=== PATIENT | male | born 1945 | race Caucasian/White ===

== ENCOUNTER 2018-07-08 09:18 | Day surgery (SDC) | payer MEDICARE, OTHER ==
[~2018-07-08 09:18] MED LIST: AMLO10 PO; ASPI81CH PO; CEPH500 PO; CLON1 PO; ESCI5 PO; FENT25TP TOP; FURO40 PO; GABA400 PO; HYDACE7.5 PO; HYDRA25 PO; LEVSOD25 PO; LOVA40 PO; METO50 PO; Miralax17 GM PO; NAPR500 PO; NEOBACHC15 TOP; OXYC10TA19 PO; QUET25 PO; SULTRIDS PO; TEMA15 PO; TIZA4 PO; TRAZ100 PO; VENL25 PO; VERA120 PO; ZOLP10 PO
== END 2018-07-08 22:40 | disposition home or self-care (01) ==
LOC: WOUND 09:18
DX: L89.213 Pressure ulcer of right hip, stage 3 (principal); E78.5 Hyperlipidemia, unspecified; I10 Essential (primary) hypertension; G89.4 Chronic pain syndrome; I70.268 Atherosclerosis of native arteries of extremities with gangrene, other extremity
CPT/HCPCS: 87070; 87205; G0463

== ENCOUNTER 2018-07-15 07:41 | Day surgery (SDC) | payer MEDICARE, OTHER | END 2018-07-15 22:43 | disposition home or self-care (01) | LOC: WOUND 07:41 | DX: L02.415 Cutaneous abscess of right lower limb (principal); E78.5 Hyperlipidemia, unspecified; I10 Essential (primary) hypertension; G89.4 Chronic pain syndrome; I70.209 Unspecified atherosclerosis of native arteries of extremities, unspecified extremity ==

== ENCOUNTER 2018-07-17 00:15 | Day surgery (SDC) | payer MEDICARE, OTHER | END 2018-07-17 22:36 | disposition home or self-care (01) | LOC: WOUND 00:15 | DX: L02.415 Cutaneous abscess of right lower limb (principal); I70.209 Unspecified atherosclerosis of native arteries of extremities, unspecified extremity; E78.5 Hyperlipidemia, unspecified; I10 Essential (primary) hypertension; G89.4 Chronic pain syndrome ==

== ENCOUNTER 2018-08-14 00:45 | Day surgery (SDC) | payer MEDICARE, OTHER | END 2018-08-14 22:39 | disposition home or self-care (01) | LOC: WOUND 00:45 | DX: L98.492 Non-pressure chronic ulcer of skin of other sites with fat layer exposed (principal); L02.415 Cutaneous abscess of right lower limb; I10 Essential (primary) hypertension; G89.4 Chronic pain syndrome; E78.5 Hyperlipidemia, unspecified | CPT/HCPCS: 87070; 87075; 87205 ==

== ENCOUNTER 2018-08-17 07:40 | Day surgery (SDC) | payer MEDICARE, OTHER | END 2018-08-17 22:59 | disposition home or self-care (01) | LOC: WOUND 07:40 | DX: L98.492 Non-pressure chronic ulcer of skin of other sites with fat layer exposed (principal); L02.415 Cutaneous abscess of right lower limb; I10 Essential (primary) hypertension; G89.4 Chronic pain syndrome ==

== ENCOUNTER 2018-08-19 00:06 | Day surgery (SDC) | payer MEDICARE, OTHER | END 2018-08-19 22:48 | disposition home or self-care (01) | LOC: WOUND 00:06 | DX: L98.492 Non-pressure chronic ulcer of skin of other sites with fat layer exposed (principal); L02.415 Cutaneous abscess of right lower limb; I10 Essential (primary) hypertension; G89.4 Chronic pain syndrome ==

== ENCOUNTER 2018-10-07 00:20 | Day surgery (SDC) | payer MEDICARE, OTHER ==
[~2018-10-07 00:20] MED LIST changes: -LEVSOD25 PO; +LEVSOD50 PO
[2018-11-24] MEDS ORDERED: FENTANYL1 EAC1 TD (10:46)
[2018-11-24] MEDS ORDERED: GABA600 PO (10:47)
[2018-11-24] MEDS ORDERED: PRAV20 PO (10:50)
[2018-11-24] MEDS ORDERED: SERT100 PO (10:50)
[2018-11-24] MEDS ORDERED: MONT10T PO (11:21)
[2018-11-24] MEDS ORDERED: Hair, Skin & N1 EACH PO (11:22)
[2018-11-24] MEDS ORDERED: Advair Hfa 230-12 GM (11:23)
== END 2018-10-07 22:38 | disposition home or self-care (01) ==
LOC: WOUND 00:20
DX: L98.492 Non-pressure chronic ulcer of skin of other sites with fat layer exposed (principal); L02.415 Cutaneous abscess of right lower limb; I10 Essential (primary) hypertension; G89.4 Chronic pain syndrome; E11.9 Type 2 diabetes mellitus without complications
CPT/HCPCS: 87070; G0463

== ENCOUNTER 2018-10-21 10:00 | Day surgery (SDC) | payer MEDICARE, OTHER ==
[2018-11-24] MEDS ORDERED: FENTANYL1 EAC1 TD (10:46)
[2018-11-24] MEDS ORDERED: GABA600 PO (10:47)
[2018-11-24] MEDS ORDERED: SERT100 PO (10:50)
[2018-11-24] MEDS ORDERED: PRAV20 PO (10:50)
[2018-11-24] MEDS ORDERED: MONT10T PO (11:21)
[2018-11-24] MEDS ORDERED: Hair, Skin & N1 EACH PO (11:22)
[2018-11-24] MEDS ORDERED: Advair Hfa 230-12 GM (11:23)
== END 2018-10-21 22:39 | disposition home or self-care (01) ==
LOC: WOUND 10:00
DX: L98.492 Non-pressure chronic ulcer of skin of other sites with fat layer exposed (principal); L02.415 Cutaneous abscess of right lower limb; I10 Essential (primary) hypertension; G89.4 Chronic pain syndrome
CPT/HCPCS: G0463

== ENCOUNTER 2018-10-28 09:55 | Day surgery (SDC) | payer MEDICARE, OTHER ==
[2018-11-24] MEDS ORDERED: FENTANYL1 EAC1 TD (10:46)
[2018-11-24] MEDS ORDERED: GABA600 PO (10:47)
[2018-11-24] MEDS ORDERED: PRAV20 PO (10:50)
[2018-11-24] MEDS ORDERED: SERT100 PO (10:50)
[2018-11-24] MEDS ORDERED: MONT10T PO (11:21)
[2018-11-24] MEDS ORDERED: Hair, Skin & N1 EACH PO (11:22)
[2018-11-24] MEDS ORDERED: Advair Hfa 230-12 GM (11:23)
== END 2018-10-28 22:37 | disposition home or self-care (01) ==
LOC: WOUND 09:55
DX: L89.219 Pressure ulcer of right hip, unspecified stage (principal); L02.415 Cutaneous abscess of right lower limb; I10 Essential (primary) hypertension; G89.4 Chronic pain syndrome; E11.9 Type 2 diabetes mellitus without complications
CPT/HCPCS: G0463

== ENCOUNTER 2018-11-18 09:54 | Day surgery (SDC) | payer MEDICARE, OTHER ==
[2018-11-24] MEDS ORDERED: FENTANYL1 EAC1 TD (10:46)
[2018-11-24] MEDS ORDERED: GABA600 PO (10:47)
[2018-11-24] MEDS ORDERED: PRAV20 PO (10:50)
[2018-11-24] MEDS ORDERED: SERT100 PO (10:50)
[2018-11-24] MEDS ORDERED: MONT10T PO (11:21)
[2018-11-24] MEDS ORDERED: Hair, Skin & N1 EACH PO (11:22)
[2018-11-24] MEDS ORDERED: Advair Hfa 230-12 GM (11:23)
== END 2018-11-18 22:44 | disposition home or self-care (01) ==
LOC: WOUND 09:54
DX: L98.492 Non-pressure chronic ulcer of skin of other sites with fat layer exposed (principal); L02.415 Cutaneous abscess of right lower limb; G89.4 Chronic pain syndrome; E11.9 Type 2 diabetes mellitus without complications; N18.3 Chronic kidney disease, stage 3 (moderate)

== ENCOUNTER 2018-12-02 06:53 | Observation (INO) | payer MEDICARE, OTHER ==
[~2018-12-02] VITALS: Ht 167.6 cm; Wt 87.1 kg
[~2018-12-02 06:53] MED LIST changes: +Advair Hfa 230-12 GM; +FENTANYL1 EAC1 TD; +GABA600 PO; +Hair, Skin & N1 EACH PO; +MONT10T PO; +PRAV20 PO; +SERT100 PO
--- NOTE | 2018-12-02 07:53 | NUR ---
History, Chart, Medications and Allergies reviewed before start of procedure. Lungs clear T/O to Auscultation. Patient confirms NPO status and agrees with scheduled surgery. Pre-Op teaching done. Pt verbalizes understanding. Patient reports completing Chlorhexadine shower X2 prior to admission to hospital.
--- NOTE | 2018-12-02 08:03 | NUR ---
PT HAS A DRESSING TO R HIP WHICH HE PLACES THIS MORNING AFTER HIS SHOWER. BRUISINGN NOTED TO BACK AND HIP.
--- NOTE | 2018-12-02 08:18 | NUR ---
MINAL STARTED PER DR. MORILLO REQUEST.
--- NOTE | 2018-12-02 15:46 | NUR ---
Patient gave permission for Tri Issa to provide care on 12/03/18.
--- NOTE | 2018-12-02 18:01 | NUR ---
SHIFT SUMMARY SINCE ARRIVAL TO UNIT, PT HAS BEEN QUEIT, SOFT SPOKEN. SEEMS TO HAVE SOME DIFFICULTY FINDING WORDS AT TIMES. PAIN APPEARS TO BE WELL MANAGED. TOLERATING DIET.
--- NOTE | 2018-12-03 07:04 | NUR ---
SUMMARY PT OOB FOR BRP THIS AM REQUIRES 2 ASSIST WITH WALKER ENCOURAGED. PT VERB NORCO EFFECTIVE FOR PAIN CONTROL. PT WITH OCC INCONTINENCE WHILE SLEEPING. ATTENDS CHANGED.
--- NOTE | 2018-12-03 07:10 | NUR ---
pt oob to bathroom with assist with fww to void pt denies bm req pain meds sn administered
--- NOTE | 2018-12-03 13:55 | NUR ---
dr messer by to see pt ok to go later today with his home wound vac needs to charge battery was
--- NOTE | 2018-12-03 17:24 | NUR ---
ASSISTED PT TO BATHROOM TO VOID AWAITING DISCHARE ORDERS FROM DR WOLFE CALLED [facility] TALKED WITH DR KAYLIE LOTT TO TRY AND REACH DR WOLFE
--- NOTE | 2018-12-03 18:30 | NUR ---
DISCHARGE INSTRUCTIONS REVIEWED WITH PT VERBALIZED NO RX PT PUT ON HIS OWN WOUND VAC ASSISTED TO GET DRESSED NO ACUTE CHANGES ALSO WENT OVER INSTRUCTIONS WITH PTS SON ADDITIONAL SUPPLIES GIVEN
== END 2018-12-03 18:44 | disposition home or self-care (01) ==
LOC: SURS 06:53 → PRE IP 06:53 → SURS 06:54 → PRE IP 08:30 → SURS 11:38
PROVIDERS: ADMIT Surgery
PROC: 0JBL0ZZ Excision of Right Upper Leg Subcutaneous Tissue and Fascia, Open Approach (ICD-10-PCS; principal; 2018-12-02 08:30)
DX: L89.219 Pressure ulcer of right hip, unspecified stage (principal); I12.9 Hypertensive chronic kidney disease with stage 1 through stage 4 chronic kidney disease, or unspecified chronic kidney disease; E11.22 Type 2 diabetes mellitus with diabetic chronic kidney disease; N18.9 Chronic kidney disease, unspecified; E78.5 Hyperlipidemia, unspecified; G47.33 Obstructive sleep apnea (adult) (pediatric); E03.9 Hypothyroidism, unspecified; K21.9 Gastro-esophageal reflux disease without esophagitis; F31.9 Bipolar disorder, unspecified; Z79.899 Other long term (current) drug therapy
CPT/HCPCS: 82947; 87071; 87075; 87205; 88305; G0378; J1100; J2250; J2405; J3010; J7120; Q9968

== ENCOUNTER 2019-10-19 16:26 | Emergency (ER) | payer MEDICARE, OTHER ==
[~2019-10-19] VITALS: Ht 167.6 cm; Wt 77.1 kg
[~2019-10-19 16:26] MED LIST changes: -FENTANYL1 EAC1 TD; +Fentanyl1 EAC4 TOP; +LEVSOD125 PO; -LEVSOD50 PO; -TRAZ100 PO; +TRAZ150T57 PO
[2019-10-19] MEDS ORDERED: TAMSULOSIN HCL0.4 M1 PO (16:42)
[2019-10-19] MEDS ORDERED: ARIP10 PO (16:43)
[2019-10-19] MEDS ORDERED: SINEMET 25-1001 EACH PO (16:43)
[2019-10-19] MEDS ORDERED: PRINIVIL10 MG PO (16:44)
[2019-10-19 16:48] LABS: BASOPHILS ABSOLUTE AUTO 0.09 K/mm3 (0.00-0.23); BASOPHILS PERCENT AUTO 1 % (0-2); EOSINOPHILS ABSOLUTE AUTO 0.21 K/mm3 (0.00-0.68); EOSINOPHILS PERCENT AUTO 3 % (0-6); Hemoglobin 16.4 g/dL (13.5-17.5); IMMATURE GRAN ABSOLUTE AUTO 0.04 K/mm3 (0.00-0.10); IMMATURE GRAN PERCENT AUTO 1 % (0-1); LYMPHOCYTES ABSOLUTE AUTO 2.17 K/mm3 (0.84-5.20); LYMPHOCYTES PERCENT AUTO 26 % (21-46); MONOCYTES ABSOLUTE AUTO 0.34 K/mm3 (0.16-1.47); MONOCYTES PERCENT AUTO 4 % (4-13); Mean Corpuscular HGB 29.1 pg (26.0-34.0); Mean Corpuscular HGB Conc 32.2 g/dL (31.5-36.5); Mean Corpuscular Volume 90 fL (80-100); Mean Platelet Volume 11.3 fL (9.1-12.4); NEUTROPHILS ABSOLUTE AUTO 5.55 K/mm3 (1.96-9.15); NEUTROPHILS PERCENT AUTO 66 % (41-73); Platelet Count 275 K/mm3 (150-400); RDW Coefficient Variation 16.5 % (11.7-14.2); Red Blood Cell Count 5.64 M/mm3 (4.30-5.90)
[2019-10-19 17:09] LABS: Albumin, Blood 4.2 g/dL (3.4-5.0); Albumin/Globulin Ratio 0.8 (0.8-1.8); Bilirubin, Total 0.6 mg/dL (0.1-1.0); Calcium, Blood 9.8 mg/dL (8.5-10.1); Creatinine, Blood 1.79 mg/dL (0.60-1.20); Globulin, Blood 5.1 g/dL (2.2-4.0); Potassium, Blood 4.5 mmol/L (3.5-5.5); Total Protein, Blood 9.3 g/dL (6.4-8.2)
[2019-10-19 17:50] LABS: Source, Urine Clean Catch
[2019-10-19 17:53] LABS: Bilirubin, Urine Neg (Neg); Blood, Urine 3+ (Neg); Glucose Qualitative, Urine Neg (Neg); Ketones, Urine 3+ (Neg); Leukocyte Esterase, Urine Neg (Neg); Nitrite, Urine Neg (Neg); Protein, Urine 2+ (Neg); Specific Gravity, Urine 1.025 (1.003-1.022); Urobilinogen, Urine NORM (Normal)
[2019-10-19 18:02] LABS: Appearance, Urine Clear (Clear); Color, Urine Yellow (P-Yellow)
[2019-10-19 18:05] LABS: White Blood Cells, Urine Not Seen /hpf (0-5)
[2019-10-19 18:06] LABS: Squamous Epithelial Cells Rare /hpf (Few)
[2019-10-19 18:07] LABS: Bacteria Few /hpf
[2019-10-19 18:08] LABS: Amorphous Light (0-Heavy); Hyaline Casts 0-2 /lpf (0-2); Mucus Light (0-Heavy)
== END 2019-10-19 19:18 | disposition home or self-care (01) ==
LOC: ER 16:26
PROVIDERS: Emergency Medicine
DX: R44.3 Hallucinations, unspecified (principal); R74.0 Nonspecific elevation of levels of transaminase and lactic acid dehydrogenase [LDH]; G20 Parkinson's disease; I12.9 Hypertensive chronic kidney disease with stage 1 through stage 4 chronic kidney disease, or unspecified chronic kidney disease; N18.9 Chronic kidney disease, unspecified; E78.5 Hyperlipidemia, unspecified; E03.9 Hypothyroidism, unspecified; Z79.899 Other long term (current) drug therapy
CPT/HCPCS: 36415; 51701; 80053; 81001; 85025; 93005; 93010; 96360-59; 96361-59; 99284-25; J7030

== ENCOUNTER 2019-10-21 15:57 | Inpatient (IN) | payer MEDICARE, OTHER ==
[~2019-10-21] VITALS: Ht 175.3 cm; Wt 72.5 kg
[~2019-10-21 15:57] MED LIST changes: +ARIP10 PO; +PRINIVIL10 MG PO; +SINEMET 25-1001 EACH PO; +TAMSULOSIN HCL0.4 M1 PO
[2019-10-21] MEDS ORDERED: SERT100 PO (18:23)
[2019-10-21 18:46] LABS: Alanine Aminotransfer (ALT/SGP 219 U/L (12-78); Albumin, Blood 3.9 g/dL (3.4-5.0); Albumin/Globulin Ratio 0.8 (0.8-1.8); Alk Phos 108 U/L (50-136); Anion Gap 10 mmol/L (6-16); Aspartate Aminotrans (AST/SGOT 452 U/L (12-37); Bilirubin, Direct 0.2 mg/dL (0.0-0.3); Bilirubin, Indirect 0.4 mg/dL (0.1-0.7); Bilirubin, Total 0.6 mg/dL (0.1-1.0); Blood Urea Nitrogen 34 mg/dL (8-24); CO2, Blood 25 mmol/L (21-32); Calcium, Blood 9.3 mg/dL (8.5-10.1); Chloride, Blood 99 mmol/L (98-108); Creatinine, Blood 1.62 mg/dL (0.60-1.20); Globulin, Blood 4.6 g/dL (2.2-4.0); Glomerular Filtration Rate 44 (60-); Glucose, Blood 88 mg/dL (70-99); Magnesium, Blood 2.2 mg/dL (1.6-2.4); Phosphorus, Blood 2.8 mg/dL (2.5-4.9); Potassium, Blood 3.8 mmol/L (3.5-5.5); Sodium, Blood 134 mmol/L (136-145); Total Protein, Blood 8.5 g/dL (6.4-8.2)
--- NOTE | 2019-10-21 19:20 | NUR ---
PT AO AND SETTLED INTO ROOM. PT WAS A ONE PERSON ASSIST TO BED. BED ALARM IN PLACE AT THIS THIS TIME. PT HAS CALL ALARM WITHIN REACH NO DISTRESS NOTED. TREATED FOR BACK PAIN PER EMAR.
[2019-10-22 04:44] LABS: BASOPHILS ABSOLUTE AUTO 0.08 K/mm3 (0.00-0.23); BASOPHILS PERCENT AUTO 1 % (0-2); EOSINOPHILS ABSOLUTE AUTO 0.28 K/mm3 (0.00-0.68); EOSINOPHILS PERCENT AUTO 5 % (0-6); Hematocrit 44.7 % (37.0-53.0); Hemoglobin 14.3 g/dL (13.5-17.5); IMMATURE GRAN ABSOLUTE AUTO 0.03 K/mm3 (0.00-0.10); IMMATURE GRAN PERCENT AUTO 1 % (0-1); LYMPHOCYTES ABSOLUTE AUTO 2.05 K/mm3 (0.84-5.20); LYMPHOCYTES PERCENT AUTO 35 % (21-46); MONOCYTES PERCENT AUTO 7 % (4-13); Mean Corpuscular Volume 91 fL (80-100); Mean Platelet Volume 11.7 fL (9.1-12.4); NEUTROPHILS ABSOLUTE AUTO 3.11 K/mm3 (1.96-9.15); NEUTROPHILS PERCENT AUTO 52 % (41-73); Platelet Count 165 K/mm3 (150-400); RDW Coefficient Variation 16.3 % (11.7-14.2); Red Blood Cell Count 4.93 M/mm3 (4.30-5.90); White Blood Cell Count 5.95 K/mm3 (4.00-11.30)
--- NOTE | 2019-10-22 04:53 | NUR ---
SHIFT SUMMARY PATIENT PLEASANT TO WORK WITH OVERNIGHT. HE FEELS LESS SCARED ABOUT THE CARE HE IS RECEIVING IF THINGS ARE EXPLAINED TO HIM BEFOREHAND AND HE RESPONDS VERY WELL. HE WAS ABLE TO SLEEP MOST OF THE NIGHT. IV IN RIGHT WRIST IS PATENT AND INFUSING WITH NORMAL SALINE AT 125 ML/HR. MRSA CLEARANCE SWABS FROM THROAT AND NARES OBTAINED AND SENT TO LAB. UNABLE TO OBTAIN STOOL SPECIMIN PATIENT HAS NOT YET HAS A BOWEL MOVEMENT. BED IN LOWEST POSITION WITH WHEELS LOCKED AND ALARM ON. CALL LIGHT WITHIN REACH. REPORT GIVEN TO ONCOMING RN.
[2019-10-22 05:00] LABS: Albumin, Blood 3.3 g/dL (3.4-5.0); Albumin/Globulin Ratio 0.8 (0.8-1.8); Bilirubin, Total 0.5 mg/dL (0.1-1.0); Bun/Creatinine Ratio 20.4 (12.0-20.0); Calcium, Blood 8.6 mg/dL (8.5-10.1); Creatinine, Blood 1.52 mg/dL (0.60-1.20); Globulin, Blood 4.1 g/dL (2.2-4.0); Potassium, Blood 3.7 mmol/L (3.5-5.5); Total Protein, Blood 7.4 g/dL (6.4-8.2)
--- NOTE | 2019-10-22 17:29 | NUR ---
SHIFT SUMMARY PT 1 PERSON ASSIST USING FWW. AMBULATED IN TO BATHROOM 2-3 TIMES TODAY AND VOIDED. REPORTED BACK PAIN THIS AFTERNOON THAT WAS TREATED WITH OXYCODONE. APS IN TO SEE PT AND SPOKE WITH HIM ABOUT LIVING SITUATION. SHE DISCUSSED GETTING MEDICAID IN PLACE FOR OPENING PLACEMENT OPPORTUNITIES. RADIO SPORTSCASTER IN TO VISIT WELL AND NOTIFIED HER OF UPDATE.
[2019-10-23 05:24] LABS: Alanine Aminotransfer (ALT/SGP 99 U/L (12-78); Albumin, Blood 3.1 g/dL (3.4-5.0); Albumin/Globulin Ratio 0.9 (0.8-1.8); Alk Phos 84 U/L (50-136); Anion Gap 8 mmol/L (6-16); Aspartate Aminotrans (AST/SGOT 251 U/L (12-37); Bilirubin, Total 0.4 mg/dL (0.1-1.0); Blood Urea Nitrogen 25 mg/dL (8-24); Bun/Creatinine Ratio 20.8 (12.0-20.0); CO2, Blood 24 mmol/L (21-32); Calcium, Blood 8.5 mg/dL (8.5-10.1); Chloride, Blood 104 mmol/L (98-108); Globulin, Blood 3.6 g/dL (2.2-4.0); Glomerular Filtration Rate >60 (60-); Glucose, Blood 108 mg/dL (70-99); Potassium, Blood 3.4 mmol/L (3.5-5.5); Sodium, Blood 136 mmol/L (136-145); Total Protein, Blood 6.7 g/dL (6.4-8.2)
--- NOTE | 2019-10-23 18:34 | NUR ---
SHIFT SUMMARY NO ACUTE CHANGES. PATIENT MEDICATED X1 FOR PAIN. DENIES NAUSEA AND SHORTNESS OF BREATH. UP ONE ASSIST WITH FWW TO CHAIR AN BATHROOM. UP IN CHAIR FOR MEALS. PATIENT AWAITING PLACEMENT. CALL LIGHT IN REACH.
--- NOTE | 2019-10-24 04:59 | NUR ---
SHIFT SUMMARY: VSS. AFEB. MAINTAINING 02 SATS WNL ON RA. SLEPT WELL AFTER ADMINISTRATION OF PRN ANALGESIC. REACHED ABOUT 12 HRS WITH NO VOID DOCUMENTED, HE THEN VOIDED WITH ENCOURAGEMENT FROM STAFF, PVR WAS CHECKED- 125MLS. BED LOW, CALL BUTTON WITHIN REACH. BED ALARM ON. NO ATTEMPTS TO SELF T/F TONIGHT.
[2019-10-24 05:01] LABS: Albumin/Globulin Ratio 0.8 (0.8-1.8); Bilirubin, Total 0.4 mg/dL (0.1-1.0); Bun/Creatinine Ratio 18.8 (12.0-20.0); Calcium, Blood 8.5 mg/dL (8.5-10.1); Creatinine, Blood 1.28 mg/dL (0.60-1.20); Free Thyroxine 0.35 ng/dL (0.70-1.60); Globulin, Blood 3.7 g/dL (2.2-4.0); Potassium, Blood 3.4 mmol/L (3.5-5.5); Total Protein, Blood 6.7 g/dL (6.4-8.2)
[2019-10-24 08:07] LABS: HBSAG SCREEN Negative (Negative); HCV ANTIBODY <0.1 (0.0-0.9); HEP B CORE AB, IGM Negative (Negative)
--- NOTE | 2019-10-24 16:46 | NUR ---
SHIFT SUMMARY PATIENT IS PLEASANT. NO ACUTE CONCERNS AT THIS TIME. HE IS AWAITING PLACEMENT. HE IS ALERT AND ORIENTED X3. HE DENIES ANY EXCESS PAIN AT THIS TIME. DOES NOTE TO HAVE TROUBLE SWALLOWING. HE DOES NOT NOTE TO HAVE ANY OTHER ISSUES.
--- NOTE | 2019-10-25 04:54 | NUR ---
PT HAS BEEN RESTING QUIETLY WITH FEW INTERRUPTIONS. CALL LIGHT IN REACH.
[2019-10-25 05:53] LABS: Alanine Aminotransfer (ALT/SGP 75 U/L (12-78); Albumin/Globulin Ratio 0.8 (0.8-1.8); Alk Phos 74 U/L (50-136); Anion Gap 8 mmol/L (6-16); Aspartate Aminotrans (AST/SGOT 184 U/L (12-37); Bilirubin, Total 0.4 mg/dL (0.1-1.0); Blood Urea Nitrogen 24 mg/dL (8-24); Bun/Creatinine Ratio 20.2 (12.0-20.0); CO2, Blood 22 mmol/L (21-32); Calcium, Blood 8.6 mg/dL (8.5-10.1); Chloride, Blood 107 mmol/L (98-108); Creatinine, Blood 1.19 mg/dL (0.60-1.20); Globulin, Blood 3.6 g/dL (2.2-4.0); Glomerular Filtration Rate >60 (60-); Glucose, Blood 106 mg/dL (70-99); Potassium, Blood 3.6 mmol/L (3.5-5.5); Sodium, Blood 137 mmol/L (136-145); Total Protein, Blood 6.6 g/dL (6.4-8.2)
--- NOTE | 2019-10-25 17:43 | NUR ---
SHIFT SUMMARY RAMA HAS BEEN MOSTLY ORIENTED THIS SHIFT. ANSWERS ORIENTATION QUESTIONS APPROPRIATELY, BUT NOT ABLE TO FULLY TRACK CONVERSATIONS ON MEDS, FORGETFUL ALSO. UP OUT OF BED TO WALK WITH PT AND AGAIN WITH OT, UP TO CHAIR FOR BREAKFAST AND LUNCH WITH A01 AND WALKER. BLADDER SCAN AFTER VOIDING SHOWED 119ML REMAINING. PAIN WELL CONTROLLED WITH FENTANYL PATCH. NEEDS ASSISTANCE WITH URINAL. L SCRATCH ON FLANK DRESSED WITH ABX OINTMENT. TOOK PILLS PRESCRIBED. CALL LIGHT IN REACH, [facility]
--- NOTE | 2019-10-26 04:50 | NUR ---
SHIFT SUMMARY PATIENT ABLE TO SLEEP WELL MOST OF THE NIGHT. IV IN RIGHT WRIST PATENT AND FLUSHED, ALTHOUGH SEEMS TO FLUSH DIFFERENTLY DEPENDING ON THE POSITION OF HIS HAND. PATIENT RECEIVED ONE DOSE OF PRN OXYCODONE FOR BACK PAIN. BED IN LOWEST POSITION WITH WHEELS LOCKED AND ALARM ON. CALL LIGHT WITHIN REACH. REPORT GIVEN TO ONCOMING RN.
[2019-10-26 04:52] LABS: Bun/Creatinine Ratio 22.3 (12.0-20.0); Calcium, Blood 8.4 mg/dL (8.5-10.1); Creatinine, Blood 1.3 mg/dL (0.60-1.20); Potassium, Blood 3.9 mmol/L (3.5-5.5)
--- NOTE | 2019-10-26 18:10 | NUR ---
SHIFT SUMMARY PATIENT A/O. MAKES NEEDS KNOWN. PAIN MANAGED THROUGH PRN MEDICATIONS. CALLS APPROPRIATELY. VSS. PATIENT ABLE TO STAND/PIVOT AND TRANSFER FROM CHAIR TO BED AND BACK.
--- NOTE | 2019-10-27 05:47 | NUR ---
HAS BEEN RESTING QUIETLY WITH FEW INTERRUPTIONS THIS SHIFT. RECEIVED PAIN MED FOR DISCOMFORT OF LEFT HIP AREA - NOTED ABRASION OF AREA, STATED IT HAPPENED WHEN HE FELL BEFORE HE CAME INTO THE HOSPITAL. WAS STATED ABOVE, HAS BEEN RESTING QUIETLY SINCE. CALL LIGHT IN REACH.
--- NOTE | 2019-10-27 18:35 | NUR ---
SHIFT SUMMARY PATIENT A/O. PAIN MANAGED THROUGH PRN/SCHEDULED MEDICATIONS. USES CALL LIGHT APPROPRIATELY. HAS BEEN CALLING FOR ASSISTANCE TO RESTROOM AND USES FWW WITH STBY ASSIST. PATIENT TO D/C TO [facility], AWAITING FURNISHINGS TO BE PLACED. D/C ORDER IN FOR THE PATIENT AND NOW AWAITING PLACEMENT.
--- NOTE | 2019-10-28 04:09 | NUR ---
SHIFT SUMMARY NO ISSUES NOTED. PT HAS BEEN SLEEPING T/O SHIFT. PT HAS BEEN GETTING UP TO USE RESTROOM WITH ASSISTANCE. PT CURRENTLY SLEEPING IN NO DISTRESS. CALL LIGHT IN REACH.
[2019-10-28] MEDS ORDERED: CLOT10 MT (11:20)
[2019-10-28] MEDS ORDERED: Flonase 0.05% N16 GM (11:21)
--- NOTE | 2019-10-28 15:02 | NUR ---
PER BRANDON WITH [facility] THE FAMILY IS NOT READY FOR PT TO DISCHARGE TODAY THEY ARE STILL MOVING IN TO [facility] AND SETTING UP CAREGIVERS. RX FAXED TO [facility] AND W/C SCRIPT FAXED TO [facility] BY BRANDON. PLAN FOR DISCHARGE TOMORROW AM.
--- NOTE | 2019-10-28 17:35 | NUR ---
SHIFT SUMMARY PATIENT A/O. AMBULATING WELL WITH FWW. PAIN MANAGED SCHEDULED AND PRN MEDICATIONS. VSS. PATIENT REQUIRES SETUP ASSISTANCE FOR FEEDING, GROOMING AND TOILETING. DISCHARGE ORDER IN PLACE FOR PATIENT AND AWAITING FURNISHING OF HOME AND 4WW ORDER TO BE FULFILLED. LN TO CONTINUE TO MONITOR.
--- NOTE | 2019-10-29 04:35 | NUR ---
SHIFT SUMMARY PT HAD VISITORS AT BEGINNING OF SHIFT AND WAS IN GOOD SPIRITS. PT REPORTED BEING TIRED AFTER HIS FAMILY LEFT. PT SLEPT WELL FOR MOST OF SHIFT. PT DID HAVE SOME INCREASED BACK PAIN AND WAS MEDICATED PER EMAR. PT CURRENTLY SLEEPING AND BREATHING EASY. CALL LIGHT IN REACH.
== END 2019-10-29 10:48 | disposition home or self-care (01) | DRG 682 ==
LOC: MEDS 15:57
PROVIDERS: Family Medicine; Internal Medicine Endocrinology, Diabetes & Metabolism; Student in an Organized Health Care Education/Training Program; ADMIT Family Medicine
DX: N17.9 Acute kidney failure, unspecified (principal); G92 Toxic encephalopathy; E87.1 Hypo-osmolality and hyponatremia; E44.0 Moderate protein-calorie malnutrition; E86.9 Volume depletion, unspecified; E03.9 Hypothyroidism, unspecified; R41.0 Disorientation, unspecified; G20 Parkinson's disease; F32.9 Major depressive disorder, single episode, unspecified; K75.9 Inflammatory liver disease, unspecified; N18.3 Chronic kidney disease, stage 3 (moderate); G89.29 Other chronic pain; E86.0 Dehydration; F51.04 Psychophysiologic insomnia; R31.9 Hematuria, unspecified; R33.9 Retention of urine, unspecified; E87.6 Hypokalemia; E11.22 Type 2 diabetes mellitus with diabetic chronic kidney disease; E11.51 Type 2 diabetes mellitus with diabetic peripheral angiopathy without gangrene; Z87.891 Personal history of nicotine dependence; Z79.899 Other long term (current) drug therapy
CPT/HCPCS: 36415; 76705; 76770; 80048; 80053; 80069; 82248; 83735; 84439; 84443; 85025; 86705; 86803; 87015; 87045; 87046; 87081; 87205; 87340; 87899; 96372; 97110; 97116; 97162; 97166; 97530; 97535; G0378; J1650; J7030

== ENCOUNTER 2019-11-16 11:17 | Inpatient (IN) | payer MEDICARE, OTHER ==
[~2019-11-16] VITALS: Ht 172.7 cm; Wt 79.1 kg
[~2019-11-16 11:17] MED LIST changes: +CLOT10 MT; +Flonase 0.05% N16 GM
[2019-11-16 12:35] LABS: BASOPHILS ABSOLUTE AUTO 0.06 K/mm3 (0.00-0.23); BASOPHILS PERCENT AUTO 1 % (0-2); EOSINOPHILS ABSOLUTE AUTO 0.24 K/mm3 (0.00-0.68); EOSINOPHILS PERCENT AUTO 3 % (0-6); Hematocrit 32.7 % (37.0-53.0); Hemoglobin 10.1 g/dL (13.5-17.5); IMMATURE GRAN ABSOLUTE AUTO 0.06 K/mm3 (0.00-0.10); IMMATURE GRAN PERCENT AUTO 1 % (0-1); LYMPHOCYTES ABSOLUTE AUTO 1.11 K/mm3 (0.84-5.20); LYMPHOCYTES PERCENT AUTO 12 % (21-46); MONOCYTES ABSOLUTE AUTO 0.64 K/mm3 (0.16-1.47); MONOCYTES PERCENT AUTO 7 % (4-13); Mean Corpuscular HGB 28.2 pg (26.0-34.0); Mean Corpuscular HGB Conc 30.9 g/dL (31.5-36.5); Mean Corpuscular Volume 91 fL (80-100); Mean Platelet Volume 10.7 fL (9.1-12.4); NEUTROPHILS ABSOLUTE AUTO 6.82 K/mm3 (1.96-9.15); NEUTROPHILS PERCENT AUTO 76 % (41-73); Platelet Count 374 K/mm3 (150-400); RDW Coefficient Variation 17.8 % (11.7-14.2); RDW Standard Deviation 59.8 fL (35.1-46.3); Red Blood Cell Count 3.58 M/mm3 (4.30-5.90); White Blood Cell Count 8.93 K/mm3 (4.00-11.30)
[2019-11-16 12:44] LABS: Base Excess Venous 2.5 mmol/L; Bicarbonate Venous 26.5 mmol/L (24.0-30.0); PCO2 Venous 39.1 mmHg (38-42); pH Blood Venous 7.44 (7.34-7.37)
[2019-11-16 13:10] LABS: Alanine Aminotransfer (ALT/SGP 13 U/L (12-78); Albumin, Blood 2.4 g/dL (3.4-5.0); Albumin/Globulin Ratio 0.5 (0.8-1.8); Anion Gap 6 mmol/L (6-16); Aspartate Aminotrans (AST/SGOT 50 U/L (12-37); Blood Urea Nitrogen 16 mg/dL (8-24); Bun/Creatinine Ratio 14.4 (12.0-20.0); CO2, Blood 26 mmol/L (21-32); Calcium, Blood 8.4 mg/dL (8.5-10.1); Chloride, Blood 105 mmol/L (98-108); Creatinine, Blood 1.11 mg/dL (0.60-1.20); Globulin, Blood 4.8 g/dL (2.2-4.0); Glomerular Filtration Rate >60 (60-); Glucose, Blood 106 mg/dL (70-99); Potassium, Blood 4.5 mmol/L (3.5-5.5); Sodium, Blood 137 mmol/L (136-145); Total Protein, Blood 7.2 g/dL (6.4-8.2)
[2019-11-16 13:17] LABS: Alk Phos 103 U/L (50-136); Bilirubin, Total 0.5 mg/dL (0.1-1.0); Troponin I <0.015 ng/mL (0.000-0.040)
[2019-11-16] MEDS ORDERED: GABAPENTIN600 MG PO (15:44)
[2019-11-16 16:59] LABS: Bilirubin, Urine Neg (Neg); Blood, Urine Neg (Neg); Glucose Qualitative, Urine Neg (Neg); Ketones, Urine Neg (Neg); Leukocyte Esterase, Urine 1+ (Neg); Nitrite, Urine Neg (Neg); Protein, Urine Neg (Neg); Source, Urine Voided; Specific Gravity, Urine 1.005 (1.003-1.022); Urobilinogen, Urine NORM (Normal)
[2019-11-16 17:18] LABS: Appearance, Urine Clear (Clear); Color, Urine Yellow (P-Yellow)
[2019-11-16 17:20] LABS: Red Blood Cells, Urine 0-2 /hpf (0-2); Squamous Epithelial Cells Not Seen /hpf (Few)
[2019-11-16 17:21] LABS: Bacteria Rare /hpf
--- NOTE | 2019-11-16 18:35 | NUR ---
On Saturday, November 16, 2019, at 1830, patient gave verbal consent for me to assist his RN tommorrow evening in his care. He was alert and oriented X4.
--- NOTE | 2019-11-16 19:46 | NUR ---
HE ARRIVED AFTER 5PM. HE AND HIS SON GAVE ME HIS HEALTH HISTORY. HE THEN LEFT FOR CT SCAN. HE RESTED ON RETURN THEN I STARTED HIS IVF'S AND A FEW OTHER MEDICATIONS ORDERED. O2 IS ON 2L PER NC. HE DOES NOT APPEAR SOB. REPORT SAID WITHOUT O2 HIS SATS RANGE FROM 82% TO 89%. HE HAS NO APPETITE. HE DOES HAVE BACK PAIN AND ASKED AND RECEIVED OXYCODONE. HE CAN BE CONTINENT AND INCONTINENT. HE SAYS HE WILL NEED HELP WITH THE URINAL. BED ALARM ON. HE HAS BEEN INSTRUCTED ON THE USE OF THE CALL LIGHT.
[2019-11-16 22:22] LABS: Adenovirus Not Detected (NOT DETECT); Bordetella pertussis Not Detected (NOT DETECT); Chlamydophila pneumoniae Not Detected (NOT DETECT); Coronavirus 229E Not Detected (NOT DETECT); Coronavirus HKU1 Not Detected (NOT DETECT); Coronavirus NL63 Not Detected (NOT DETECT); Coronavirus OC43 Not Detected (NOT DETECT); Human Metapneumovirus Not Detected (NOT DETECT); Human Rhinovirus/Enterovirus Not Detected (NOT DETECT); Influenza A Not Detected (NOT DETECT); Influenza A/2009-H1 Not Detected (NOT DETECT); Influenza A/H1 Not Detected (NOT DETECT); Influenza A/H3 Not Detected (NOT DETECT); Influenza B Not Detected (NOT DETECT); Mycoplasma pneumoniae Not Detected (NOT DETECT); Parainfluenza Virus 1 Not Detected (NOT DETECT); Parainfluenza Virus 2 Not Detected (NOT DETECT); Parainfluenza Virus 3 Not Detected (NOT DETECT); Parainfluenza Virus 4 Not Detected (NOT DETECT); Respiratory Syncytial Virus Not Detected (NOT DETECT)
[2019-11-17 04:33] LABS: BASOPHILS ABSOLUTE AUTO 0.07 K/mm3 (0.00-0.23); BASOPHILS PERCENT AUTO 1 % (0-2); EOSINOPHILS ABSOLUTE AUTO 0.56 K/mm3 (0.00-0.68); EOSINOPHILS PERCENT AUTO 7 % (0-6); Hematocrit 30.1 % (37.0-53.0); Hemoglobin 9.5 g/dL (13.5-17.5); IMMATURE GRAN ABSOLUTE AUTO 0.05 K/mm3 (0.00-0.10); IMMATURE GRAN PERCENT AUTO 1 % (0-1); LYMPHOCYTES ABSOLUTE AUTO 1.72 K/mm3 (0.84-5.20); LYMPHOCYTES PERCENT AUTO 22 % (21-46); MONOCYTES ABSOLUTE AUTO 0.58 K/mm3 (0.16-1.47); MONOCYTES PERCENT AUTO 7 % (4-13); Mean Corpuscular HGB 28.6 pg (26.0-34.0); Mean Corpuscular HGB Conc 31.6 g/dL (31.5-36.5); Mean Corpuscular Volume 91 fL (80-100); Mean Platelet Volume 10.4 fL (9.1-12.4); NEUTROPHILS ABSOLUTE AUTO 4.85 K/mm3 (1.96-9.15); NEUTROPHILS PERCENT AUTO 62 % (41-73); Platelet Count 322 K/mm3 (150-400); RDW Coefficient Variation 17.7 % (11.7-14.2); RDW Standard Deviation 58.4 fL (35.1-46.3); Red Blood Cell Count 3.32 M/mm3 (4.30-5.90); White Blood Cell Count 7.83 K/mm3 (4.00-11.30)
[2019-11-17 04:54] LABS: Alanine Aminotransfer (ALT/SGP 18 U/L (12-78); Albumin, Blood 2.2 g/dL (3.4-5.0); Albumin/Globulin Ratio 0.5 (0.8-1.8); Alk Phos 93 U/L (50-136); Anion Gap 5 mmol/L (6-16); Aspartate Aminotrans (AST/SGOT 40 U/L (12-37); Bilirubin, Total 0.6 mg/dL (0.1-1.0); Blood Urea Nitrogen 17 mg/dL (8-24); Bun/Creatinine Ratio 15.7 (12.0-20.0); CO2, Blood 28 mmol/L (21-32); Calcium, Blood 8.2 mg/dL (8.5-10.1); Chloride, Blood 104 mmol/L (98-108); Creatinine, Blood 1.08 mg/dL (0.60-1.20); Globulin, Blood 4.4 g/dL (2.2-4.0); Glomerular Filtration Rate >60 (60-); Glucose, Blood 89 mg/dL (70-99); Potassium, Blood 4.2 mmol/L (3.5-5.5); Sodium, Blood 137 mmol/L (136-145); Total Protein, Blood 6.6 g/dL (6.4-8.2)
--- NOTE | 2019-11-17 08:50 | NUR ---
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 SOME PAIN. MED PER EMAR. H/R REG, NO MURMER NOTED. NO TELE. LUNGS CLEAR EXCEPT CRACKLES IN RT BASE. ON 10 L OXIMIZER. PT ABLE TO TALK FULL SENTENCES. RESP EASY, UNLABORED . BT X4 LAST BM TODAY. VOIDS PER BATHROOM. 1 ASST BED IN LOW POSITION, CALL LITE IN REACH, CALLS APPROP
--- NOTE | 2019-11-17 11:58 | NUR ---
STOPPED IVF PER DR WRIGHT
--- NOTE | 2019-11-17 13:48 | NUR ---
TALKED TO PHARMACIST. WILL RETIME ZOSYN IS LATE , NO IV ACCESS WAS AVAIL.
--- NOTE | 2019-11-17 13:57 | NUR ---
LOST IV ACCESS, AND THEN STARTED KYLER, AVAIL TO RUN ZOSYN NOW. WILL PUT BEHIND. CALLED ANGELA DICKSON. OKAY RUN ZOSYN NOW AND AGAIN [phone] TONITE/.
--- NOTE | 2019-11-17 14:46 | NUR ---
SPOKE TO ABOUT LOWER BP THIS AM WHEN IN ROOM. NO NEW ORDERS.
--- NOTE | 2019-11-17 15:14 | NUR ---
echocardiogram completed
--- NOTE | 2019-11-17 17:25 | NUR ---
PT PLEASANT TODAY. HAS BEEN UP TO BATHROOM. MED PER EMAR FOR PAIN. LUNGS REMAIN CRACKLES IN BASES ON RT. O2 TURNED DOWN FROM 10 L OXIMIZER TO 6L . PT LESA WELL. IV FLUIDS D/C PER DR WRIGHT. NO OTHER CONCERNS AT THIS TIME. BED IN POSITION, CALL LITE IN REACH, CALLS APPROP
[2019-11-17 22:26] LABS: Vancomycin, Trough 22.3 ug/mL (5.0-10.0)
--- NOTE | 2019-11-18 05:04 | NUR ---
NOC SHIFT SUMMARY PT IS IN ISO UNTIL FINAL CX RESULTS ARE IN. HE IS PLEASANT AND COOPERATIVE WITH CARE. ON 6L OXYMIZER. CONTINENT THIS NIGHT. AAOX3. VSS. TREATED FOR PAIN PER EMAR TO GOOD EFFECT. NO ACUTE CHANGES NOTED THIS SHIFT. WILL CONTINUE TO MONITOR.
--- NOTE | 2019-11-18 18:43 | NUR ---
PT PLEASANT AND COOPERATIVE WITH CARE TODAY. FINAL RESULTS ON LAST SET OF CULTURES NEG FOR MRSA, ISO STATUS REMOVED. OXYMIZER CHANGED TO NASAL CANULA AND O2 AT 4L. ANTIBIOTICS CONTINUE AND RESP TX STARTED, PT TOLERATING WELL. NO ACUTE CHANGES NOTED, WILL CONTINUE TO MONITOR AND REPORT TO ONCOMING RN
[2019-11-18 22:28] LABS: Vancomycin, Trough 17.9 ug/mL (5.0-10.0)
[2019-11-19 05:31] LABS: BASOPHILS ABSOLUTE AUTO 0.07 K/mm3 (0.00-0.23); BASOPHILS PERCENT AUTO 1 % (0-2); EOSINOPHILS ABSOLUTE AUTO 1.01 K/mm3 (0.00-0.68); EOSINOPHILS PERCENT AUTO 14 % (0-6); Hematocrit 30.2 % (37.0-53.0); Hemoglobin 9.3 g/dL (13.5-17.5); IMMATURE GRAN ABSOLUTE AUTO 0.07 K/mm3 (0.00-0.10); IMMATURE GRAN PERCENT AUTO 1 % (0-1); LYMPHOCYTES ABSOLUTE AUTO 1.53 K/mm3 (0.84-5.20); LYMPHOCYTES PERCENT AUTO 21 % (21-46); MONOCYTES ABSOLUTE AUTO 0.53 K/mm3 (0.16-1.47); MONOCYTES PERCENT AUTO 7 % (4-13); Mean Corpuscular HGB 28.3 pg (26.0-34.0); Mean Corpuscular HGB Conc 30.8 g/dL (31.5-36.5); Mean Corpuscular Volume 92 fL (80-100); Mean Platelet Volume 10.8 fL (9.1-12.4); NEUTROPHILS ABSOLUTE AUTO 3.96 K/mm3 (1.96-9.15); NEUTROPHILS PERCENT AUTO 55 % (41-73); Platelet Count 320 K/mm3 (150-400); RDW Coefficient Variation 17.8 % (11.7-14.2); RDW Standard Deviation 59.8 fL (35.1-46.3); Red Blood Cell Count 3.29 M/mm3 (4.30-5.90); White Blood Cell Count 7.17 K/mm3 (4.00-11.30)
[2019-11-19 05:58] LABS: Bun/Creatinine Ratio 16.2 (12.0-20.0); Creatinine, Blood 1.36 mg/dL (0.60-1.20); Potassium, Blood 4.1 mmol/L (3.5-5.5)
--- NOTE | 2019-11-19 07:15 | NUR ---
NOC SHIFT SUMMARY PT IS PLEASANT AND COOPERATIVE WITH CARE, AAOX3, ON 4LNC, VSS. WENT TO SLEEP SHORTLY AFTER EVENING MED PASS AND HAS SLEPT MUCH OF THE NIGHT. NO ACUTE CHANGES NOTED. APPEARS IN NO ACUTE DISTRESS. REPORT TO ONCOMING RN.
--- NOTE | 2019-11-19 19:37 | NUR ---
SHIFT SUMMARY: NO ACUTE CHANGES TO REPORT THIS SHIFT. PT A&O; CALM AND COOPERATIVE WITH CARE. HX PARKINSONS; FLAT AFFECT. MEDICATED FOR PAIN PER EMAR. PT ON O2 @ 4L TO MAINTAIN SATS WHILE SUPINE; PT WILL DESAT INTO 80s WITH ANY EXERTION; O2 NEEDS INCREASE TO APPROX 7L TO STAND AT BEDSIDE. IV ABX CONTINUING. REPORT GIVEN TO ONCOMING RN.
[2019-11-20 05:07] LABS: BASOPHILS ABSOLUTE AUTO 0.06 K/mm3 (0.00-0.23); BASOPHILS PERCENT AUTO 1 % (0-2); EOSINOPHILS ABSOLUTE AUTO 1.11 K/mm3 (0.00-0.68); EOSINOPHILS PERCENT AUTO 14 % (0-6); Hematocrit 30.2 % (37.0-53.0); Hemoglobin 9.3 g/dL (13.5-17.5); IMMATURE GRAN ABSOLUTE AUTO 0.06 K/mm3 (0.00-0.10); IMMATURE GRAN PERCENT AUTO 1 % (0-1); LYMPHOCYTES ABSOLUTE AUTO 1.79 K/mm3 (0.84-5.20); LYMPHOCYTES PERCENT AUTO 22 % (21-46); MONOCYTES ABSOLUTE AUTO 0.59 K/mm3 (0.16-1.47); MONOCYTES PERCENT AUTO 7 % (4-13); Mean Corpuscular HGB 28.4 pg (26.0-34.0); Mean Corpuscular HGB Conc 30.8 g/dL (31.5-36.5); Mean Corpuscular Volume 92 fL (80-100); Mean Platelet Volume 10.9 fL (9.1-12.4); NEUTROPHILS ABSOLUTE AUTO 4.48 K/mm3 (1.96-9.15); NEUTROPHILS PERCENT AUTO 56 % (41-73); Platelet Count 300 K/mm3 (150-400); RDW Coefficient Variation 17.9 % (11.7-14.2); RDW Standard Deviation 60.6 fL (35.1-46.3); Red Blood Cell Count 3.28 M/mm3 (4.30-5.90); White Blood Cell Count 8.09 K/mm3 (4.00-11.30)
[2019-11-20 05:56] LABS: Bun/Creatinine Ratio 15.2 (12.0-20.0); Calcium, Blood 8.2 mg/dL (8.5-10.1); Creatinine, Blood 1.38 mg/dL (0.60-1.20); Potassium, Blood 4.1 mmol/L (3.5-5.5)
--- NOTE | 2019-11-20 07:52 | NUR ---
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 minimal complaints of pain. took his home dose of oxycodone once at HS, and once in AM. Lung sounds dim lateral bases with scattered fine crackles. Patient requiring 4L 02 at rest, and 6-7 liters via high flow cannula when active. Patient expresses inability to be active due to increased oxygen demands
--- NOTE | 2019-11-20 08:05 | NUR ---
PT PLEASANT COOP A/O. DENIES PAIN AT THIS TIME. WILL FOLLOW. H?R REG, NO MURMER NOTED. NO TELE. LUNGS CLEAR WITH LIGHT CRACKLES IN BASES. ON 4L O2 AT THIS TIME. PER ISRAEL RN REPORT, ACTIVITY JUMPS NEEDS TO 6-7L. RESP EASY, UNLABORED/. BT X4 LAST BM YEST PER PT. VOIDS PER URINAL. 1-2 ASST TO BSC. NO OTHER CONCERNS AT THIS TIME. BED IN LOW POSITION, CALL LITE IN REACH, CALLS APPROP
--- NOTE | 2019-11-20 16:02 | NUR ---
CLARIFIED NS FLUIDS ORDER TO CONTINUE AT 75/HR
--- NOTE | 2019-11-20 16:37 | NUR ---
PT STATED NEED TO GO TO BATHROOM. DID AMBULATE 1 ASST TO AND FROM COMMODE. DID WELL. TURNED O2 UP TO 8 FOR WALKING. BACK DOWN TO 5 WHEN IN BED. VOIDED AND BM ALSO
--- NOTE | 2019-11-20 17:55 | NUR ---
PT PLEASANT TODAY. DR FRANCIS OKAYED ME ADVISE PT STILL HAS PNEUMONIA AND NO PE PER CT REPORT. DONE. PT HAPPY ABOUT NEGATIVE RESULT. PT WALKED TO BATHROOM TODAY. DID DESAT AND TURNED KUP TO 8 FOR TRANSFER. DID OKAY. SATES DROPPED TO 88 THEN CAME BACK UP TO 92 . NO OTHER CONCERNS AT THIS TIME .BED IN LOW POSITION, CALL LITE IN REACH, CALLS APPROP
[2019-11-21 04:39] LABS: BASOPHILS ABSOLUTE AUTO 0.06 K/mm3 (0.00-0.23); BASOPHILS PERCENT AUTO 1 % (0-2); EOSINOPHILS ABSOLUTE AUTO 1.17 K/mm3 (0.00-0.68); EOSINOPHILS PERCENT AUTO 14 % (0-6); Hematocrit 29.5 % (37.0-53.0); Hemoglobin 9.1 g/dL (13.5-17.5); IMMATURE GRAN ABSOLUTE AUTO 0.06 K/mm3 (0.00-0.10); IMMATURE GRAN PERCENT AUTO 1 % (0-1); LYMPHOCYTES ABSOLUTE AUTO 1.45 K/mm3 (0.84-5.20); LYMPHOCYTES PERCENT AUTO 18 % (21-46); MONOCYTES ABSOLUTE AUTO 0.53 K/mm3 (0.16-1.47); MONOCYTES PERCENT AUTO 7 % (4-13); Mean Corpuscular HGB 28.7 pg (26.0-34.0); Mean Corpuscular HGB Conc 30.8 g/dL (31.5-36.5); Mean Corpuscular Volume 93 fL (80-100); Mean Platelet Volume 10.9 fL (9.1-12.4); NEUTROPHILS PERCENT AUTO 60 % (41-73); Platelet Count 275 K/mm3 (150-400); RDW Coefficient Variation 17.7 % (11.7-14.2); RDW Standard Deviation 60.9 fL (35.1-46.3); Red Blood Cell Count 3.17 M/mm3 (4.30-5.90); White Blood Cell Count 8.17 K/mm3 (4.00-11.30)
--- NOTE | 2019-11-21 08:00 | NUR ---
PT PLEASANT COOP A/O. STATES PAIN AT 8 NORMAL. MED PER EMAR. STATES FEELS POORLY THIS AM. UNABLE TO SAY WHY SPECIFICALLY. DR NOTIFIED WENT BY IN [place]. H/R REG, NO MURMER NOTED. NO TELE. LUNGS CLEAR UPPER , CRACKLES IN BASES. IVF STOPPED PER ORDERS. RESP EASY, UNLABORED. ON 4.5L O2 AT THIS TIME. MORE WHEN UP AMBULATING. BT X4 LAST BM YEST. VOIDS URINAL. 1 ASST WITH FWW W/ GAIT BELT TO BATHROOM NEED. BED IN LOW POSITION, CALL LITE IN REACH, CALLS APPROP. BED ALARM ONFOR SAFETY
--- NOTE | 2019-11-21 18:33 | NUR ---
PT PLEASANT TODAY, PAIN IN BACK MANAGED WITH AVAIL MEDS. NOT NOTICABLE IMPROVEMENT TODAY. DID AMBULATE TO BATHROOM TODAY. NO OTHER CONCERNS AT THIS TIME. BED IN LOW POSITION, CALL LITE IN REACH, CALLS APPROP.
--- NOTE | 2019-11-22 04:51 | NUR ---
SERVICE LINE COORDINATOR SUMMARY Patient woke around 0245 and complained to DRIVER STARTING GATE he was SOB. vital signs checked, and 02 saturation was 76%. This RN increased 02 from 3L NC to 10 L oximizer and called RT to come eval situation. Patient is coughing more than he has over the last few days, and nose really congested. RT brought high flow tubing with humidity to try to loosen patients nasal secretions as he is not able to breath very effectively with cannula. lungs dim throughout with audible crackles in upper respiratory areas. 02 increased to 94-96 liters after about 60-90 seconds of raising 02 volume
[2019-11-22 05:25] LABS: BASOPHILS ABSOLUTE AUTO 0.06 K/mm3 (0.00-0.23); BASOPHILS PERCENT AUTO 1 % (0-2); EOSINOPHILS ABSOLUTE AUTO 0.65 K/mm3 (0.00-0.68); EOSINOPHILS PERCENT AUTO 5 % (0-6); Hematocrit 30.5 % (37.0-53.0); Hemoglobin 9.3 g/dL (13.5-17.5); IMMATURE GRAN ABSOLUTE AUTO 0.09 K/mm3 (0.00-0.10); IMMATURE GRAN PERCENT AUTO 1 % (0-1); LYMPHOCYTES ABSOLUTE AUTO 0.92 K/mm3 (0.84-5.20); LYMPHOCYTES PERCENT AUTO 8 % (21-46); MONOCYTES ABSOLUTE AUTO 0.65 K/mm3 (0.16-1.47); MONOCYTES PERCENT AUTO 5 % (4-13); Mean Corpuscular HGB 28.3 pg (26.0-34.0); Mean Corpuscular HGB Conc 30.5 g/dL (31.5-36.5); Mean Corpuscular Volume 93 fL (80-100); Mean Platelet Volume 10.6 fL (9.1-12.4); NEUTROPHILS PERCENT AUTO 80 % (41-73); Platelet Count 289 K/mm3 (150-400); RDW Coefficient Variation 17.8 % (11.7-14.2); RDW Standard Deviation 60.6 fL (35.1-46.3); Red Blood Cell Count 3.29 M/mm3 (4.30-5.90); White Blood Cell Count 12.07 K/mm3 (4.00-11.30)
--- NOTE | 2019-11-22 05:37 | NUR ---
ADDENDUM TO CUSTODIAN ATHLETIC EQUIPMENT SUMMARY Just spoke with day shift RT who feels that the patient might be fluid overloaded. Will monitor for results of BNP and notify MD requesting diuretic if appropriate.
[2019-11-22 05:46] LABS: Alanine Aminotransfer (ALT/SGP 7 U/L (12-78); Albumin, Blood 2.1 g/dL (3.4-5.0); Albumin/Globulin Ratio 0.5 (0.8-1.8); Alk Phos 73 U/L (50-136); Anion Gap 5 mmol/L (6-16); Aspartate Aminotrans (AST/SGOT 19 U/L (12-37); Bilirubin, Total 0.4 mg/dL (0.1-1.0); Blood Urea Nitrogen 21 mg/dL (8-24); Bun/Creatinine Ratio 17.5 (12.0-20.0); CO2, Blood 27 mmol/L (21-32); Calcium, Blood 8.3 mg/dL (8.5-10.1); Chloride, Blood 107 mmol/L (98-108); Globulin, Blood 4.3 g/dL (2.2-4.0); Glomerular Filtration Rate >60 (60-); Glucose, Blood 110 mg/dL (70-99); Potassium, Blood 4.2 mmol/L (3.5-5.5); Sodium, Blood 139 mmol/L (136-145); Total Protein, Blood 6.4 g/dL (6.4-8.2)
[2019-11-22 07:10] LABS: PCO2 Arterial 46.8 mmHg (35-45); PO2 Arterial 70.6 mmHg (80-100)
[2019-11-22 09:28] LABS: Influenza A Negative (NEGATIVE); Influenza B Negative (NEGATIVE)
--- NOTE | 2019-11-22 17:58 | NUR ---
SHIFT SUMMARY PT SLEEPING AT START OF SHIFT. WOKE FOR SHIFT REPORT, BUT VERY WEAK AND ILL LOOKING. RT HERE FOR STAT ABG AFTER SHIFT REPORT. PT ON 8L HF O2, WHICH PT HAS REMAINED ON FOR ENTIRE SHIFT. O2 SATS DROPPED BREIFLY WHEN PT UP TO CHAIR FOR BED BATH AND LINEN CHANGE BECAUSE HE KEPT TAKING TUBING OUT OF NARES AND MOVING TO SIDE OF FACE. O2 INCREASED BREIFLY TO GET O2 SATS BACK UP AND VERIFIED BY RT. P/T WORKED WITH PT BREIFLY TODAY, ASSISTING UP TO BTHRM AND BACK. P/T REPORTED PT VERY WEAK, AND UNSAFE TO RETURN TO [facility] AT THIS TIME. PT LATER WAS 2P ASSIST WITH GAITBELT TO CHAIR AND BACK. PT WITH TREMORS TO ALL EXTREMITIES WELL RIGIDITY R/T PARKINSONS. PT MEDICATED PER EMAR FOR C/O BACK PAIN. NEW FENTANYL PATCH PLACED TO LCW PER PT REQUEST. IV ABX INFUSING PER EMAR. PT ABLE TO USE URINAL IN BED, SELF, THRU OUT THE DAY. PT RESTING QUIETLY AT THIS TIME. CALL LT IN REACH.
[2019-11-22 20:41] LABS: PCO2 Arterial 43.4 mmHg (35-45); PO2 Arterial 102 mmHg (80-100); pH Blood Arterial 7.44 (7.35-7.45)
[2019-11-22 20:42] LABS: BASOPHILS ABSOLUTE AUTO 0.05 K/mm3 (0.00-0.23); BASOPHILS PERCENT AUTO 0 % (0-2); EOSINOPHILS ABSOLUTE AUTO 0.11 K/mm3 (0.00-0.68); EOSINOPHILS PERCENT AUTO 1 % (0-6); Hematocrit 31.8 % (37.0-53.0); IMMATURE GRAN ABSOLUTE AUTO 0.14 K/mm3 (0.00-0.10); IMMATURE GRAN PERCENT AUTO 1 % (0-1); LYMPHOCYTES ABSOLUTE AUTO 0.83 K/mm3 (0.84-5.20); LYMPHOCYTES PERCENT AUTO 6 % (21-46); MONOCYTES ABSOLUTE AUTO 0.67 K/mm3 (0.16-1.47); MONOCYTES PERCENT AUTO 5 % (4-13); Mean Corpuscular HGB 28.5 pg (26.0-34.0); Mean Corpuscular HGB Conc 31.4 g/dL (31.5-36.5); Mean Corpuscular Volume 91 fL (80-100); Mean Platelet Volume 10.9 fL (9.1-12.4); NEUTROPHILS ABSOLUTE AUTO 11.97 K/mm3 (1.96-9.15); NEUTROPHILS PERCENT AUTO 87 % (41-73); Platelet Count 282 K/mm3 (150-400); RDW Coefficient Variation 17.8 % (11.7-14.2); RDW Standard Deviation 59.5 fL (35.1-46.3); Red Blood Cell Count 3.51 M/mm3 (4.30-5.90); White Blood Cell Count 13.77 K/mm3 (4.00-11.30)
[2019-11-22 20:58] LABS: Albumin, Blood 2.2 g/dL (3.4-5.0); Anion Gap 6 mmol/L (6-16); Blood Urea Nitrogen 22 mg/dL (8-24); Bun/Creatinine Ratio 15.4 (12.0-20.0); CO2, Blood 28 mmol/L (21-32); Calcium, Blood 8.3 mg/dL (8.5-10.1); Chloride, Blood 104 mmol/L (98-108); Creatinine, Blood 1.43 mg/dL (0.60-1.20); Glomerular Filtration Rate 51 (60-); Glucose, Blood 125 mg/dL (70-99); Phosphorus, Blood 1.5 mg/dL (2.5-4.9); Potassium, Blood 3.9 mmol/L (3.5-5.5); Sodium, Blood 138 mmol/L (136-145)
--- NOTE | 2019-11-22 21:15 | NUR ---
RECEIVED REPORT FROM [facility] RN. PT TRANSFERRED TO PCU VIA HOSPITAL BED. DROWSY UPON ARRIVAL, BUT ANSWERING QUESTIONS APPROPRIATELY. PT STATES "I'M NOT FEELING GOOD." REPOSITIONED FOR COMFORT. BED IN LOW AND LOCKED POSITION WITH BED ALARM ACTIVATED. WILL CONTINUE TO MONITOR.
--- NOTE | 2019-11-22 21:30 | NUR ---
RN ADMINISTERING MEDICATION TO PT. PT BEGAN COUGHING FORCEFULLY, AND EXPECTORATED ONE OF HIS PILLS.
--- NOTE | 2019-11-23 02:26 | NUR ---
DR. VASQUEZ CALLED REGARDING PT'S CHANGE IN BP AND O2 NEEDS. ORDERS RECEIVED. REPORT GIVEN TO ISAIAS IT SALES REPRESENTATIVE. PT TRANSPORTED TO ICU VIA HOSPITAL BED.
--- NOTE | 2019-11-23 02:37 | NUR ---
ASSUME CARE PT BROUGHT INTO ROOM WHILE GETTING REPORT FROM PCU. PATIENT A&OX4, APPROPRIATE. SATS IN HIGH 80S ON 5L ON AIRVO AT TRANSFER. PT NOW SATS 95% AFTER GETTING SETTLED. BP WITH MAPS OVER 65 CURRENTLY AFTER 250ML BOLUS OF LR GIVEN. PULSES PALPABLE THROUGHOUT, BLE PULSES WEAKER. LUNGS COARSE THROUGHOUT. AFEBRILE. HR IN 60S. PT COMPLAINS OF BACK PAIN, FENTANYL PATCH ON.
[2019-11-23 04:12] LABS: Bun/Creatinine Ratio 16.2 (12.0-20.0); Calcium, Blood 8.3 mg/dL (8.5-10.1); Creatinine, Blood 1.48 mg/dL (0.60-1.20)
--- NOTE | 2019-11-23 06:47 | NUR ---
SHIFT SUMMARY PT CAME UP HYPOTENSIVE (90S/40S). 250ML BOLUS OF LR GIVEN, AND MAP STAYED OVER 60. PT REMAINS A&OX4, VSS. AFEBRILE. NO ACUTE ISSUES OVERNIGHT. BP WNL, MAINTINING. PT REMAINS ON AIRVO 50L.
--- NOTE | 2019-11-23 07:30 | NUR ---
Pt, awake, a/o x3. Denies any pain. In no acute resp distress at this time. Con't with same 02 settings-50L/65%.
--- NOTE | 2019-11-23 08:50 | NUR ---
Pt Desat to 81% when turned to RT. side. Repositioned to LT. side as Pt did not recover after several minutes.
--- NOTE | 2019-11-23 11:30 | NUR ---
Pt. sahra with alisha and Cecile weller to chair. Tol. kauffman.
--- NOTE | 2019-11-23 13:00 | NUR ---
Pt. back to bed. Was weaker with amb on the return to bed after 2 hrs in chair. Pt. is salomon lying on his RT side at this time when SaO2 95%.
--- NOTE | 2019-11-23 15:19 | NUR ---
TYLENOL 650MG PO FOR TEMP OF 100.2
--- NOTE | 2019-11-23 18:31 | NUR ---
NO ACUTE CHG IN STATUS. CON'T A/O X3.AIRVO CONT 50L AND 65%. SAO2 > 90%. REF. TO WORK WITH OT TODAY. HAS SLEPT OFF AND ON. VOIDED X 1. IV CONT TKO.
--- NOTE | 2019-11-23 19:30 | NUR ---
ASSUMED CARE PT RESTING IN ROOM COMFORTABLY AT THIS TIME. BEDSIDE REPORT TAKEN FROM RADHA SARKAR. PT ON AIRVO IN ROOM AT 50L AND 65%, SATS >92%. PT REPORTING PAIN AND WANTS HOME OXYCODONE DOSE. DR. KENT AWARE. PT REPOSITIONED IN BED. ATTENDS C/D/I. URINAL AT BEDSIDE PT REPORTS WILL SHAHRZAD FOR USE. DENIES OTHER NEEDS AT THIS TIME. CALL LIGHT IS WITHIN REACH.
--- NOTE | 2019-11-23 21:20 | NUR ---
DURAGESIC PATCH REMOVED PER DR KENT PATCH REMOVED TO ADMINISTER IV FENTANYLFOR PAIN CONTROL.
--- NOTE | 2019-11-24 01:00 | NUR ---
ASSUME CARE: REPORT RECIEVED FROM FADI OFF GOING RN. MONITOR INTACT SHOWING SINUS RHYTHM HEART RATE 90'S. LUNGS SOUNDS COARSE AIR VO IN PLACE AT 50L 67% SPO2 FROM 85-92% DESATURATES WITH ANY ACTIVITY. TAKES 5-8 MINUTES TO RECOVER. ABDOMEN SOFT WITH BOWEL SOUNDS FOUR QUADS. ATTENDS IN PLACE SECONDARY TO INCONTINENCE. ABLE TO USE CALL LIGHT APPROIATLY AND VERBALIZE NEED OF URINAL OCC. ASSISTS WITH REPOSITIONING. K PAD TO BACK FOR CHRONIC BACK PAIN.CONTINUE TO MONITOR AND REPORT CHANGE IN PATIENT CONDITION.
--- NOTE | 2019-11-24 09:00 | NUR ---
PT. AWAKE,A/O X 3. DEPRESSED APPEARING AND NEEDS MUCH ENCOURAGEMENT FOR ANY ACTIVITY. [facility]. O2 REQUIREMENTS UNCHG'D. BP STABLE.
--- NOTE | 2019-11-24 10:45 | NUR ---
OOB TO CHAIR WITH ASSIST X 1.
--- NOTE | 2019-11-24 11:45 | NUR ---
RETURN TO BED WITH MINIMAL ASSISTANCE. PT PLACED ON 15L/NRB MASK FOR THE ACTIVITY AND WAS ABLE TO COMPLETE AMB WITHOUT ANY DESATURATION.
--- NOTE | 2019-11-24 15:16 | NUR ---
Initial palliative care consult: Met with Hoang in the ICU this afternoon. He was sleeping but easily awakened when this assembly instructions writer knocked on the door. He has a history of Parkinson's disease, HTN, depression, CKD, hypothroidism, DM, chronic back pain, nephrolithiasis. He was admitted to [facility] on 11/16[facility] with pneumonia, likely aspiration pneumonia possibly due to his Parkinson's disease. Hoang appears alert and oriented, however he is forgetful at times. He reports that he has been having more trouble recently at home in managing his own care. He reports that he has fallen in the past and usually uses a seated walker for ambulation. Spoke with Staff at [facility] who report that Hoang lives on the independent living side of [facility]. Spoke with Mary [facility] child care coordinator, who states that boni does live on the independent living side but also receives meals, housekeeping services and has a caregiver checking in on him several times a day. Hoang did not recall that he received these extra services. [facility] does not have any AD or POLST form on file for Hoang. Hoang has good eye contact during the visit today but appears somewhat withdrawn. He reports that he was for more than 50 years and that "She took care of everything." He reports that he misses his greatly, however he denies that he has lost his will to live. He reports his goal is to "Get better and go back home," however he states he is unsure if he will be able to do that. Nursing reports that he has been hesitant to work with therapy and to get OOB over the past day or so. Talked with pt about his goal and that working with therapy and increasing his activity will help him move in the right direction towards that goal. He reports difficulty sleeping. He states the trazadone he takes at night helps with sleep. He reports that the zoloft he takes for his mood "Doesn't seem to be working." Reviewed home medication list and his home dose of zoloft was 100 mg daily. He is currently taking zoloft 200 mg daily here that was started on 11/17/19. It is likely too early to tell if this increased dose has had any effect at this time. He states that he has never seen a therapist or talked to anyone about his depression. He is currently on an airvo to maintain his oxygen levels. He denies a cough or SOB at rest. He is able to speak in full sentences with a soft voice without difficulty. He tells this assembly instructions writer he does not use oxygen at home. He reports back pain 7/10 to his back which he reports is a chronic problem for him. He states he has a fentanyl patch 12 mcg at home which he says that he is unsure if it helps at all. He also reports taking oxycodone every 6 hours as needed for pain at home. He states he has had several back surgeries in the past. Nursing reports his fentanyl patch was discontinued today and IV fentanyl was ordered by Dr. Oconnell for his pain. Discussed code status with Hoang. He states he doesn't believe he has a POLST form and he thinks he may have filled out an AD with Rex, his son. He states he can't remember. He verified his full code wishes. When questions were asked in a variety of ways he consistantly responded with his desire to remain a full code. He would like to return to the hospital in the future for further care if needed. He also stated that he would not want to live on life support for detention. If a blood transfusion would be needed, he has declined that. His nurse asked him in a variety of ways and his response remained that same. Discussed his Parkinson's disease and how that illness progresses. He states he has not thought about future care needs because he doesn't want "to think about it." He does admit that he feels his difficulty swallowing and increasing inability to care for himself are likely due to his Parkinson's disease. He would likely benefit from having a conversation with his sons present to discuss advanced care planning and disease progression. It is difficult to know if he completely comprehends the trajectory of his illness. Nursing did report they spoke with pt's son Tony on the phone. He is currently ill and is waiting until he is feeling better before he comes to visit Hoang in the hospital. PC to remain available for continued disease process education, advanced care planning and symptom management. Requested that nursing contact PC when family does come in to visit with Hoang.
--- NOTE | 2019-11-24 17:25 | NUR ---
NO ACUTE CHG IN STATUS. WAS CHG'D TO MED TELE THIS MORNING. UP IN ROOM WITH MINIMAL ASSISTANCE. HAS HAD 4-5 LOOSE STOOLS TODAY AFTER RECTAL TUBE REMOVED. IV NS CON'T AT 125ML/HR.
--- NOTE | 2019-11-24 17:59 | NUR ---
PT. HAS SLEPT ALOT TODAY. REFUSED TO WORK WITH OT AGAIN TODAY. PT. DOES NOT LIKE THE THICKENED FLUIDS AND HAS POOR INTAKE. IV FLUIDS INCREASED TO 50/ML/HR THIS AFTERNOON. CONT TO DESAT EASILY EVEN WITH SM BITE OF FOOD. NRB MASK USED TO HASTEN RECOVERY OF DESAT'ING. ATTEMPTED TO USE CPT ON BED BUT PT REFUSED ALSO.
--- NOTE | 2019-11-24 19:00 | NUR ---
ASSMUED CARE NOTE: ASSUMED CARE OF PT @ 190, RECEVIED REPORT FROM MELLO GARCIA. PT ALERT AND ORIENTEDX3. PT IS SLOW TO RESPOND TO QUESTIONS (ALMOST, A LACK OF MOTIVATION), FLAT AFFECT. PT IS ON AIRVO WITH SETTINGS @ 50L, 65% FiO2, WITH SPO2 ABOVE 90% PT DENIES ANY SOB @ THIS TIME. NSR WITH HR IN THE 70'S. BED AT LOWEST LEVEL, WILL CONTINUE TO MONITOR PT T/O SHIFT.
--- NOTE | 2019-11-24 20:46 | NUR ---
SPO2 DECREASED TO 84%, PT HAD TAKEN AIRVO OFF HIS NOSE. PT WAS THEN PLACED BACK ON AIRVO. TOOK PT 15 MINUTES TO RECOVER. FiO2 INCREASED TO 75% WITH SPO2 @ 93%, RT NOTIFED. WHILE ASSESSING PT'S LUNG SOUNDS, PT C/O CHEST PAIN. AT THIS TIME PT DENIED RADIATING PAIN, AND POINTED TO MIDSTERNAL THE AREA OF PAIN. PT DESCRIBED THE PAIN ACHING. PT STATED THAT THE PAIN IS WORSE WITH EXHALATION. NO CHANGES SHOWN TO HEART MONITOR, VSS, HR IN THE 80'S. WHEN PT WAS ASKED IF HE HAS HAD THIS PAIN BEFORE HE STATED" YES, EARLIER TODAY. IF I WEAR THE MASK TO BREATH (NON-REBREATHER), THE PAIN GOES AWAY". PT ALSO STATES THAT HE WAS FEELING ANXIOUS. AFTER 10 MINUTES OF DEEP BREATHING AND THERAPEUTIC TOUCH. PT WAS ABLE TO RELAX, AND STATED THAT HE FELT NO PAIN.
--- NOTE | 2019-11-25 02:14 | NUR ---
UPDATE: PT SPO2 DROPPED INTO THE 80'S. LABOR BREATHING NOTED, PT USING ACCESSORY MUSCLES. RT WAS CALLED, BREATHING TREATMENT GIVEN. RR BETWEEN 30-35. CALLED FOR UPDATE. ORDERS TO INITIATE BIPAP GIVEN.
[2019-11-25 03:35] LABS: BASOPHILS ABSOLUTE AUTO 0.04 K/mm3 (0.00-0.23); BASOPHILS PERCENT AUTO 0 % (0-2); EOSINOPHILS ABSOLUTE AUTO 0.53 K/mm3 (0.00-0.68); EOSINOPHILS PERCENT AUTO 4 % (0-6); Hematocrit 27.7 % (37.0-53.0); Hemoglobin 8.6 g/dL (13.5-17.5); IMMATURE GRAN PERCENT AUTO 1 % (0-1); LYMPHOCYTES ABSOLUTE AUTO 1.22 K/mm3 (0.84-5.20); LYMPHOCYTES PERCENT AUTO 10 % (21-46); MONOCYTES ABSOLUTE AUTO 0.61 K/mm3 (0.16-1.47); MONOCYTES PERCENT AUTO 5 % (4-13); Mean Corpuscular HGB 27.8 pg (26.0-34.0); Mean Corpuscular Volume 90 fL (80-100); Mean Platelet Volume 10.6 fL (9.1-12.4); NEUTROPHILS ABSOLUTE AUTO 10.04 K/mm3 (1.96-9.15); NEUTROPHILS PERCENT AUTO 80 % (41-73); Platelet Count 254 K/mm3 (150-400); RDW Coefficient Variation 18.1 % (11.7-14.2); RDW Standard Deviation 59.7 fL (35.1-46.3); Red Blood Cell Count 3.09 M/mm3 (4.30-5.90); White Blood Cell Count 12.54 K/mm3 (4.00-11.30)
--- NOTE | 2019-11-25 03:45 | NUR ---
UPDATE: PT NOW ON BIPAP WITH SETTINGS @ 07/24, WITH FiO2 @ 75% SP02 ABOVE 90% PT RR @ 42, CRACKLES T/O, CALLED REGARDING ISSUE. ORDER FOR LASIX GIVEN.
[2019-11-25 03:53] LABS: Albumin, Blood 1.8 g/dL (3.4-5.0); Anion Gap 6 mmol/L (6-16); Blood Urea Nitrogen 26 mg/dL (8-24); Bun/Creatinine Ratio 25.5 (12.0-20.0); CO2, Blood 28 mmol/L (21-32); Calcium, Blood 8.6 mg/dL (8.5-10.1); Chloride, Blood 107 mmol/L (98-108); Creatinine, Blood 1.02 mg/dL (0.60-1.20); Glomerular Filtration Rate >60 (60-); Glucose, Blood 100 mg/dL (70-99); Phosphorus, Blood 2.4 mg/dL (2.5-4.9); Potassium, Blood 4.2 mmol/L (3.5-5.5); Sodium, Blood 141 mmol/L (136-145)
--- NOTE | 2019-11-25 06:17 | NUR ---
SHIFT SUMMARY: SEE PREVIOUS NOTES. PT REMAINS ALERT AND ORIENTEDX3. PT IS ON BIPAP WITH SETTINGS @ 10/5, FiO2 OF 80%, SPO2 94%. PT DENIES ANY SOB/CP AT THIS TIME. PT IS IN NSR WITH HR IN THE 70'S. VSS DURING SHIFT. PT C/O PAIN, CHRONIC BACK PAIN, MEDICATED ONCE PRN FOR PAIN. PT HAS BEEN USING URINAL AT BEDSIDE WITH ASSISTANCE, URINE IS CLEAR AND YELLOW. PT HAS CRACKLES T/O, LASIX GIVEN ORDERED. PT WORK OF BREATHING HAS IMPROVED SINCE LAST NOTE, RR 26. PT HAS BEEN AFEBRILE. LR RUNNING @ 50MLS/HR. BED AT LOWEST LEVEL, CALL LIGHT WITHIN REACH. WILL CONTINUE TO MONITOR UNTIL REPORT IS GIVEN TO ONCOMING SHIFT.
--- NOTE | 2019-11-25 07:24 | NUR ---
START OF SHIFT NOTE: RECEIVED REPORT FROM MELLO HAGAN, ASSUMED CARE, PATIENT IS DROWSY BUT AROUSEABLE, ABLE TO ANSWER QUESTIONS, UNSURE ABOUT DATE AND PRESIDENT, "ANSWERS, WE DON'T HAVE ONE", DENIES PAIN, AFEBRILE, CONTINUES ON BIPAP, 10/5, FiO2 80 %, O2 SATURATION AT 97 %, NSR, HR 70'S, SBP'S IN LOW 100'S, LR INFUSING AT 50 CC/HR, PATIENT WEARS ATTENDS, INCONTINENT OCCASIONALLY, BUT USES URINAL MOST OF THE TIME, , LS CLEAR ON RIGHT, SOME WHEEZING HEARD ON LEFT, BOWEL TONES HYPOACTIVE, CALL LIGHT IN REACH, WILL CONTINUE TO MONITOR.
--- NOTE | 2019-11-25 08:00 | NUR ---
RT IN TO SEE PATIENT, UNABLE TO BE REMOVED FROM BIPAP AT THIS TIME, D/T RESPIRATORY NEEDS, WILL HOLD BREADKFAST FOR NOW.
--- NOTE | 2019-11-25 08:25 | NUR ---
SPEECH THERAPY IN TO CHECK ON PATIENT, NOW NPO, UNABLE TO REMOVE BIPAP AT THIS TIME, PER SPEECH, KEEP HIM NPO AND HAVE MD DECIDE ABOUT MEDICATIONS.
--- NOTE | 2019-11-25 08:27 | NUR ---
RT IN TO SEE PATIENT, BIPAP SETTINGS ADJUSTED TO 10/5 FiO2 75 %.
--- NOTE | 2019-11-25 08:37 | NUR ---
DR. KENT IN TO SEE PATIENT, SPOKE WITH RT WELL, NEW ORDERS RECEIVED, POSSIBLE DOBHOFF/INTUBATION LATER.
--- NOTE | 2019-11-25 10:06 | NUR ---
PATIENT RECEIVED FENTANYL IV 50 MCG FOR PAIN 9/10 IN UPPER EXTREMITIES, PATIENT ASKED TO HAVE BLANKETS REMOVED, HE "FEELS TOO HOT", CALL LIGHT IN REACH, WILL CONTINUE TO MONITOR.
[2019-11-25 11:06] LABS: PCO2 Arterial 49.9 mmHg (35-45); PO2 Arterial 66.1 mmHg (80-100); pH Blood Arterial 7.41 (7.35-7.45)
--- NOTE | 2019-11-25 11:22 | NUR ---
RT IN TO DRAW BLOOD GASES, CHEST XRAY DONE, PATIENT NOW ON MAXIPIME, AND VANCO, ALSO RECEIVED PROTONIX AND LEVOTHYROXIDE IV, DR. HOUGH IN TO SEE PATIENT, UPDATED ON CONDITION AND NEW ORDERS, DR. HOUGH SPOKE WITH DR. KENT, AND ASKED TO HAVE SON COME IN THIS AFTERNOON FOR FAMILY CONFERENCE, SYLVIA BRITO, PALLIATIVE CARE, NOTIFIED, SHE WILL CALL FAMILY AND ARRANGE MEETING.
--- NOTE | 2019-11-25 12:27 | NUR ---
Per Dr. Barbour request, call placed to family members - Rex and Tony, the pt's sons. Message left on voicemail to please return call to Palliative Care to set up a meeting with the provider and the pt. Will notify nurse.
--- NOTE | 2019-11-25 13:01 | NUR ---
PATIENT CONTINUES ON BIPAP / FiO2 75 % SATING IN MID 90'S, AFEBRILE, DENIES PAIN AT THIS TIME, VSS OTHERWISE, SYLVIA BRITO WORKING ON FAMILY CONFERENCE THIS AFTERNOON, HAS LEFT MESSAGE FOR BOTH SONS AND IS TRYING TO CONTACT [id number], CALL LIGHT IN REACH, WILL CONTINUE TO MONITOR.
--- NOTE | 2019-11-25 13:28 | NUR ---
PT/OT IN TO WORK WITH PATIENT.
--- NOTE | 2019-11-25 14:05 | NUR ---
PATIENT RECEIVED 50 MCG FENTANYL, IV, FOR BACK PAIN 05/29, WILL CONTINUE TO MONITOR.
--- NOTE | 2019-11-25 14:31 | NUR ---
SON AT BEDSIDE, UPDATE ON PATIENT'S CONDITION PROVIDED D/T SON NOT HAVING BEEN HERE FOR THE PAST TWO DAYS, FAMILY MEETING WILL TAKE PLACE SHORTLY.
--- NOTE | 2019-11-25 15:30 | NUR ---
FAMILY CONFERENCE IN PATIENT ROOM, DR. HOUGH, PALLIATIVE CARE AND PLANT BREEDER SCIENTIST IN ATTENDANCE, AWAITING NEW ORDERS.
--- NOTE | 2019-11-25 16:14 | NUR ---
PATIENT'S O2 AT 84 %, BIPAP SETTINGS 10/5/FiO2 60 %, NATHANIEL PATTERSON, RT, NOTIFIED AND FiO2 TURNED UP TO 75 %, PATIENT NOW IN LOW TO MID 90'S.
--- NOTE | 2019-11-25 17:09 | NUR ---
PATIENT WAS SHAVED D/T BIPAP MASK NOT FITTING CORRECTLY, ALSO PATIENT RECEIVED 1 MG ATIVAN IV D/T ANXIETY FROM BIPAP MASK, CALL LIGHT IN REACH, WILL CONTINUE TO MONITOR.
--- NOTE | 2019-11-25 17:19 | NUR ---
Clinical Visit: Pt is alert, oriented. He is on bipap, reports significant anxiety over his hospital stay and wearing the bipap. Dr. Barbour and pt's son, Tony, is present in the room. Dr. Barbour is directing the visit. Review of pt's current problems, treatments available, and prognosis. Followed up after meeting to answer questions. Tony and the pt are both overwhelmed at this time and tearful. Request for anxiety medication from Dr. Barbour. Updated Maritza, social work administrator.
--- NOTE | 2019-11-25 17:38 | NUR ---
PATIENT'S OLDEST SON IN, UPDATE PROVIDED.
--- NOTE | 2019-11-25 17:43 | NUR ---
SHIFT SUMMARY NOTE: NO ACUTE EVENTS DURING THIS SHIFT, PATIENT REMAINS ON BIPAP WITH SETTINGS 10/5 FiO2 70 %, O2 SATURATION AT 94 %, PATIENT TOLERATING WELL, AFEBRILE, RECEIVED FENTANYL 50 MCG IV TWICE FOR BACK AND UPPER EXTREMITY PAIN, ALSO RECEIVED ATIVAN 1 MG IV ONCE FOR ANXIETY, PATIENT IS NOW A DNR AFTER FAMILY CONFERENCE WITH SON, DR. HOUGH, PALLIATIVE CARE, AND BREAKFAST ATTENDANT, PATIENT IS NPO D/T ASPIRATION RISK, IV FLUIDS LR AT 50 CC INFUSING, CONTINUES TO RECEIVE CEFEPIME AND VANCOMYCIN FOR PNA, FOR DETAILS SEE SHIFT ASSESSMENT DOCUMENTATION AND NURSES NOTES, CALL LIGHT IN REACH, WILL CONTINUE TO MONITOR [facility]
[2019-11-26 03:18] LABS: BASOPHILS ABSOLUTE AUTO 0.09 K/mm3 (0.00-0.23); BASOPHILS PERCENT AUTO 1 % (0-2); EOSINOPHILS ABSOLUTE AUTO 0.49 K/mm3 (0.00-0.68); EOSINOPHILS PERCENT AUTO 4 % (0-6); Hematocrit 28.1 % (37.0-53.0); Hemoglobin 8.7 g/dL (13.5-17.5); IMMATURE GRAN ABSOLUTE AUTO 0.12 K/mm3 (0.00-0.10); IMMATURE GRAN PERCENT AUTO 1 % (0-1); LYMPHOCYTES ABSOLUTE AUTO 0.96 K/mm3 (0.84-5.20); LYMPHOCYTES PERCENT AUTO 8 % (21-46); MONOCYTES ABSOLUTE AUTO 0.62 K/mm3 (0.16-1.47); MONOCYTES PERCENT AUTO 5 % (4-13); Mean Corpuscular Volume 90 fL (80-100); Mean Platelet Volume 10.9 fL (9.1-12.4); NEUTROPHILS ABSOLUTE AUTO 10.25 K/mm3 (1.96-9.15); NEUTROPHILS PERCENT AUTO 82 % (41-73); Platelet Count 266 K/mm3 (150-400); RDW Coefficient Variation 18.3 % (11.7-14.2); Red Blood Cell Count 3.11 M/mm3 (4.30-5.90); White Blood Cell Count 12.53 K/mm3 (4.00-11.30)
[2019-11-26 03:34] LABS: Albumin, Blood 1.8 g/dL (3.4-5.0); Anion Gap 5 mmol/L (6-16); Blood Urea Nitrogen 31 mg/dL (8-24); Bun/Creatinine Ratio 29.5 (12.0-20.0); CO2, Blood 30 mmol/L (21-32); Calcium, Blood 8.5 mg/dL (8.5-10.1); Chloride, Blood 108 mmol/L (98-108); Creatinine, Blood 1.05 mg/dL (0.60-1.20); Glomerular Filtration Rate >60 (60-); Glucose, Blood 112 mg/dL (70-99); Phosphorus, Blood 3.3 mg/dL (2.5-4.9); Sodium, Blood 143 mmol/L (136-145)
--- NOTE | 2019-11-26 05:27 | NUR ---
SHIFT SUMMARY PATIENT SLEPT WELL THROUGH NIGHT. MOVED BIPAP TO AVAMPS SETTING FOR BETTER BIPAP TOLERANCE, MUCH IMPROVED EFFORT THROUGH NIGHT. WHILE PRESSURES WERE SLIGHTLY INCREASED, WERE ABLE TO DECREASE FIO2 TO 60%. RESERVE REMAINS MINIMAL, DESATURATES ABOUT 10% WHEN REMOVING MASK FOR LESS THAN 10 SECONDS. LUNG SOUNDS HAVE STEADILY IMPROVED THROUGH NIGHT, STILL DIMINISHED IN BILAT BASES. PAIN IS WELL CONTROLLED WITH AVAILABLE PRN PAIN MEDICATIONS. ASSESSMENT IS CHARTED. VSS. WILL CONTINUE TO MONITOR.
--- NOTE | 2019-11-26 07:20 | NUR ---
CARE ASSUMED REPORT RECEIVED, CARE ASSUMED AT 0700 FROM MELLO DE PAZ. PT ASLEEP ON BIPAP. 02 SAT 90'S, BUT RR ELEVATED IN MID 20'S. AROUSES FOR ASSESSMENT, BUT VERY SLEEPY. DENIES PAIN/DISCOMFORT. VITALS STABLE. SEE ASSESSMENT. SEE VITALS FLOWSHEET.
--- NOTE | 2019-11-26 08:58 | NUR ---
PROVIDER ASSESSMENT DR. OBRIEN TO BEDSIDE FOR ASSESSMENT. PLAN TO START CLINIMIX, GET DIETARY CONSULT, AND GET AHOLD OF FAMILY TO DISCUSS PLAN OF CARE. CALL PLACED TO EDDIE, PT'S LISTED NEXT OF KIN. BUSY SIGNAL ON ALL ATTEMPTS.
--- NOTE | 2019-11-26 09:44 | NUR ---
FAMILY TO BEDSIDE - FAMILY CONTACT INFORMATION PT'S SON, PAGE AND HIS TO BEDSIDE. DR. OBRIEN TO BEDSIDE TO TALK WITH FAMILY. CONTINUE WITH CURRENT PLAN OF CARE. PT'S NEXT OF KIN, EDDIE ON [place] UNTIL Nov. PAGE WANTING TO WAIT TO MAKE CERTAIN DECISIONS UNTIL ALL FAMILY IS AVAILABLE WHEN EDDIE RETURNS FROM [place]. AT THIS POINT, CONTINUE WITH DNR/DNI STATUS. PT'S SON, PAGE'S PHONE NUMBER IS [phone] AND HE WOULD LIKE TO BE CONTACTED WITH CHANGES.
--- NOTE | 2019-11-26 10:56 | NUR ---
Clinical Visit: Follow up with pt on his symtpoms. He reports he is having pain and anxiety. Nurse is bedside and has just given fentanyl. She will give ativan for relief of anxiety. He is still on bipap. Has refused dobhoff. Waiting for pt's son to return from cruise in [place] for further planning and discussion on future care and planning. Pt has been started on Clinimix
--- NOTE | 2019-11-26 12:18 | NUR ---
PAIN/ANXIETY PT AWAKE, STATING "I WANT A PAIN PILL." MEDICATED WITH FENTANYL AND PT STATES, "IT'S NOT BETTER." PT ASKED IF HE IS FEELING ANXIOUS AND HE NODS HIS HEAD YES. MEDICATED WITH LORAZEPAM. WHEN REASSESSED, PT DENIES PAIN/DISCOMFORT.
--- NOTE | 2019-11-26 15:51 | NUR ---
PAIN/COMFORT MANAGEMENT PT MEDICATED WITH FENTANYL, SEE EMAR. PT CONTINUES TO HAVE ELEVATED RR, RESTLESS. REPORTS BEING UNCOMFORTABLE. DISCUSSED WITH DR. OBRIEN. NEW ORDER TO INCREASE ATIVAN FREQUENTLY PT MOST COMFORTABLE TODAY AFTER ATIVAN ADMINISTRATED. CALL PLACED TO PAGE, PT'S SON TO UPDATE HIM.
--- NOTE | 2019-11-26 16:12 | NUR ---
SUMMARY PT HAS REMAINED ON BIPAP THROUGHOUT DAY WITH SMALL ADJUSTMENTS ONLY. OXYGEN DROPS CONSISTENTLY WHEN REPOSITIONED ON LEFT SIDE, TOLERATES RIGHT SIDE MUCH BETTER. OTHERWISE, VITALS STABLE. FAMILY IN AND OUT THROUGHOUT DAY. PT ABLE TO EXPRESS HIS NEEDS SOMEWHAT CLEARLY, SEE PREVIOUS NOTES. REPORT TO MELLO SEYMOUR TO ASSUME CARE.
[2019-11-27 03:42] LABS: BASOPHILS ABSOLUTE AUTO 0.08 K/mm3 (0.00-0.23); BASOPHILS PERCENT AUTO 1 % (0-2); EOSINOPHILS ABSOLUTE AUTO 1.41 K/mm3 (0.00-0.68); EOSINOPHILS PERCENT AUTO 11 % (0-6); Hematocrit 28.6 % (37.0-53.0); Hemoglobin 8.6 g/dL (13.5-17.5); IMMATURE GRAN ABSOLUTE AUTO 0.19 K/mm3 (0.00-0.10); IMMATURE GRAN PERCENT AUTO 1 % (0-1); LYMPHOCYTES ABSOLUTE AUTO 1.24 K/mm3 (0.84-5.20); LYMPHOCYTES PERCENT AUTO 9 % (21-46); MONOCYTES ABSOLUTE AUTO 0.54 K/mm3 (0.16-1.47); MONOCYTES PERCENT AUTO 4 % (4-13); Mean Corpuscular HGB 28.1 pg (26.0-34.0); Mean Corpuscular HGB Conc 30.1 g/dL (31.5-36.5); Mean Platelet Volume 11.2 fL (9.1-12.4); NEUTROPHILS ABSOLUTE AUTO 9.95 K/mm3 (1.96-9.15); NEUTROPHILS PERCENT AUTO 74 % (41-73); Platelet Count 251 K/mm3 (150-400); RDW Coefficient Variation 18.5 % (11.7-14.2); RDW Standard Deviation 63.1 fL (35.1-46.3); Red Blood Cell Count 3.06 M/mm3 (4.30-5.90); White Blood Cell Count 13.41 K/mm3 (4.00-11.30)
[2019-11-27 03:45] LABS: Mean Corpuscular Volume 94 fL (80-100)
[2019-11-27 03:50] LABS: Albumin, Blood 1.7 g/dL (3.4-5.0); Anion Gap 4 mmol/L (6-16); Blood Urea Nitrogen 36 mg/dL (8-24); CO2, Blood 30 mmol/L (21-32); Calcium, Blood 8.3 mg/dL (8.5-10.1); Chloride, Blood 109 mmol/L (98-108); Creatinine, Blood 0.92 mg/dL (0.60-1.20); Glomerular Filtration Rate >60 (60-); Glucose, Blood 133 mg/dL (70-99); Magnesium, Blood 2.4 mg/dL (1.6-2.4); Phosphorus, Blood 3.4 mg/dL (2.5-4.9); Potassium, Blood 4.3 mmol/L (3.5-5.5); Sodium, Blood 143 mmol/L (136-145); Triglycerides 134 mg/dL (30-160)
--- NOTE | 2019-11-27 04:43 | NUR ---
SHIFT SUMMARY PATIENT HAS NOT DONE WELL THROUGH THE NIGHT. CURRENTLY BIPAP @ 100% FIO2, MAINTAINING SPO2 ~ 95%, WILL DESAT TO ~ 87% WITH ANY ACTIVITY, COUGHING. CONFIRMED GOOD MASK SEAL/PRESSURES WITH RT. LUNG SOUNDS STILL CLEAR IN UPPER LOBES, DIMINISHING YOU MOVE INFERIORLY, BUT STILL AUDIBLE. NO SPUTUM PRODUCTION. MENTATION HAS WEANED THROUGH NIGHT, IS STILL ORIENTED, HOWEVER TAKES LONGER TO RESPOND THAN LAST NIGHT, APPEARS GROSSLY WEAKER. GAVE FENTANYL AND ATIVAN FOR COUGHING FITS, MINIMAL IMPROVEMENT. ASSESSMENT IS CHARTED. VSS. WILL CONTINUE TO MONITOR.
[2019-11-27 05:09] LABS: PCO2 Arterial 59.2 mmHg (35-45); PO2 Arterial 67.2 mmHg (80-100); pH Blood Arterial 7.33 (7.35-7.45)
--- NOTE | 2019-11-27 08:00 | NUR ---
ASSESMENT PT ON BIPAP AT 100% tolbert WILL FOLLOW COMMANDS AND OPEN EYES TO VERBAL STIM. ANXIOUS AND FIGHTING THE BIPAP AT TIMES AND DESAT TO LOW 80S WITH PRNS PER MD ORDER AND PT RECOVERING. VSS, AFEBRILE AND PALP PULSES T/O WITH TRACE GENERALIZED EDEMA. SATS REMAIN GREATER THAN 90, COUSE AND DIM BILAT. WEAK NON PRODUCTIVE COUGH. ABD SOFT ROUND AND NON TENDER AND BT T/O WITH NO BM.INCONTINENT OF URINE. SKIN INTACT. WILL CONT TO MONITOR.
[2019-11-28 03:40] LABS: BASOPHILS ABSOLUTE AUTO 0.07 K/mm3 (0.00-0.23); BASOPHILS PERCENT AUTO 0 % (0-2); EOSINOPHILS ABSOLUTE AUTO 0.01 K/mm3 (0.00-0.68); EOSINOPHILS PERCENT AUTO 0 % (0-6); Hematocrit 30.4 % (37.0-53.0); IMMATURE GRAN ABSOLUTE AUTO 0.59 K/mm3 (0.00-0.10); IMMATURE GRAN PERCENT AUTO 3 % (0-1); LYMPHOCYTES ABSOLUTE AUTO 0.84 K/mm3 (0.84-5.20); LYMPHOCYTES PERCENT AUTO 4 % (21-46); MONOCYTES ABSOLUTE AUTO 0.79 K/mm3 (0.16-1.47); MONOCYTES PERCENT AUTO 3 % (4-13); Mean Corpuscular HGB 28.1 pg (26.0-34.0); Mean Corpuscular HGB Conc 29.6 g/dL (31.5-36.5); Mean Corpuscular Volume 95 fL (80-100); NEUTROPHILS ABSOLUTE AUTO 21.09 K/mm3 (1.96-9.15); NEUTROPHILS PERCENT AUTO 90 % (41-73); NRBC ABSOLUTE 0.09 K/mm3 (0.00-0.02); NRBC Auto 0.4 /100 WBC (0.0-0.2); Platelet Count 195 K/mm3 (150-400); RDW Coefficient Variation 18.1 % (11.7-14.2); RDW Standard Deviation 63.1 fL (35.1-46.3); White Blood Cell Count 23.39 K/mm3 (4.00-11.30)
--- NOTE | 2019-11-28 03:53 | NUR ---
SHIFT SUMMARY PATIENT IS CONTINUING TO DECLINE. NOT VERY RESPONSIVE, AT BEGINNING OF SHIFT WAS ABLE TO ANSWER MOST YES/NO QUESTIONS BY NODDING/SHAKING HEAD, NOW MINIMAL RESPONSIVENESS TO MOST STIMULI. AFTER REPEATED STIMULI STILL ABLE TO ANSWER BASIC QUESTIONS, DENIES PAIN, HOWEVER IS TAKING LONGER TO RESPOND. GIVING ATIVAN, FENTANYL FOR IMPROVED BIPAP COMPLIANCE. REMAINS ON 100% FIO2, SPO2 USUALLY 93-95%, DESATURATES WITH ANY ACTIVITY, COUGHING. ASSESSMENT IS CHARTED. VSS. WILL CONTINUE TO MONITOR.
[2019-11-28 04:03] LABS: Albumin, Blood 1.9 g/dL (3.4-5.0); Anion Gap 3 mmol/L (6-16); Blood Urea Nitrogen 39 mg/dL (8-24); Bun/Creatinine Ratio 46.2 (12.0-20.0); CO2, Blood 29 mmol/L (21-32); Calcium, Blood 8.5 mg/dL (8.5-10.1); Chloride, Blood 109 mmol/L (98-108); Creatinine, Blood 0.85 mg/dL (0.60-1.20); Glomerular Filtration Rate >60 (60-); Glucose, Blood 148 mg/dL (70-99); Magnesium, Blood 2.5 mg/dL (1.6-2.4); Phosphorus, Blood 3.9 mg/dL (2.5-4.9); Potassium, Blood 5.3 mmol/L (3.5-5.5); Sodium, Blood 141 mmol/L (136-145)
--- NOTE | 2019-11-28 08:00 | NUR ---
ASSUMED CARE OF PT AT 0700. REPORT FROM BALDEV SARKAR. PT RESTING IN BED. BIPAP IN PLACE, SETTINGS AVAP, 9, FIO2 100%. LUNGS DIMINISHED IN BASES. PT P/W/D. PT RESPONSIVE TO PAINFUL STIMULI, OPENS EYES c LOUD VERBAL STIMULATION. DOES NOT ANSWER QUESTIONS OR FOLLOW COMMANDS. PT PALE. MUCUS MEMBRANES DRY. ABD ROUND, SOFT, NON TENDER. BT X 4. ATTENDS IN PLACE. WILL CONTINUE TO MONITOR.
--- NOTE | 2019-11-28 10:52 | NUR ---
DR OBRIEN AT BEDSIDE FOR ASSESSMENT. PT CONTINUES TO ONLY BE RESPONSIVE TO PAINFUL STIMULI. PLAN TO DECREASE SEDATION MEDS TO ALLOW FOR INTERACTION c FAMILY.
--- NOTE | 2019-11-28 17:47 | NUR ---
SHIFT SUMMARY PT ON BIPAP ENTIRE SHIFT. AVAP SETTINGS, FIO2 TITRATED TO 70% THIS SHIFT. LUNGS DIMINSHED IN BASES. PT MENTAL STATUS IMPROVED THIS SHIFT. RESPONSIVE TO VERBAL STIMULI. ATTEMPTS TO ANSWER YES/NO QUESTIONS c NODDING. MINIMIZED SEDATING MEDICATIONS THIS SHIFT TO ALLOW FOR INTERACTIONS c FAMILY. MULTIPLE FAMILY MEMBERS VISITED THIS SHIFT. PLAN FOR SON TO RETURN [place] TOM[place] FOR FAMILY MEETING REGARDING CARE PLAN. CONDOM CATH PLACED FOR URINARY INCONTIENCE. REPORT TO ONCOMING NURSE.
[2019-11-29 03:21] LABS: BASOPHILS ABSOLUTE AUTO 0.07 K/mm3 (0.00-0.23); BASOPHILS PERCENT AUTO 0 % (0-2); EOSINOPHILS PERCENT AUTO 0 % (0-6); Hematocrit 32.4 % (37.0-53.0); Hemoglobin 9.4 g/dL (13.5-17.5); IMMATURE GRAN PERCENT AUTO 3 % (0-1); LYMPHOCYTES ABSOLUTE AUTO 0.72 K/mm3 (0.84-5.20); LYMPHOCYTES PERCENT AUTO 2 % (21-46); MONOCYTES ABSOLUTE AUTO 1.25 K/mm3 (0.16-1.47); MONOCYTES PERCENT AUTO 4 % (4-13); Mean Corpuscular HGB 27.6 pg (26.0-34.0); Mean Corpuscular Volume 95 fL (80-100); Mean Platelet Volume 12.7 fL (9.1-12.4); NEUTROPHILS PERCENT AUTO 90 % (41-73); NRBC ABSOLUTE 0.21 K/mm3 (0.00-0.02); NRBC Auto 0.7 /100 WBC (0.0-0.2); Platelet Count 223 K/mm3 (150-400); RDW Coefficient Variation 18.7 % (11.7-14.2); RDW Standard Deviation 65.3 fL (35.1-46.3); Red Blood Cell Count 3.41 M/mm3 (4.30-5.90); White Blood Cell Count 29.74 K/mm3 (4.00-11.30)
[2019-11-29 03:40] LABS: Alanine Aminotransfer (ALT/SGP 21 U/L (12-78); Albumin/Globulin Ratio 0.4 (0.8-1.8); Alk Phos 157 U/L (50-136); Anion Gap 4 mmol/L (6-16); Aspartate Aminotrans (AST/SGOT 40 U/L (12-37); Bilirubin, Total 0.4 mg/dL (0.1-1.0); Blood Urea Nitrogen 44 mg/dL (8-24); Bun/Creatinine Ratio 48.4 (12.0-20.0); CO2, Blood 28 mmol/L (21-32); Calcium, Blood 8.8 mg/dL (8.5-10.1); Chloride, Blood 112 mmol/L (98-108); Creatinine, Blood 0.91 mg/dL (0.60-1.20); Globulin, Blood 4.6 g/dL (2.2-4.0); Glomerular Filtration Rate >60 (60-); Glucose, Blood 135 mg/dL (70-99); Magnesium, Blood 2.4 mg/dL (1.6-2.4); Phosphorus, Blood 3.3 mg/dL (2.5-4.9); Potassium, Blood 4.8 mmol/L (3.5-5.5); Sodium, Blood 144 mmol/L (136-145); Total Protein, Blood 6.6 g/dL (6.4-8.2)
--- NOTE | 2019-11-29 03:49 | NUR ---
SHIFT SUMMARY PATIENT HAS NOT DONE WELL TONIGHT. OVERALL, PATIENT IS MUCH LESS RESPONSIVE THAN WAS 2 NIGHTS AGO. NO LONGER ANSWERS BASIC QUESTIONS, BUT DOES WITHDRAW/LOCALIZE TO NOXIOUS STIMULI. WILL DESATURATE LOW 79% WITH SMALL AMOUNT OF COUGHING, CONTINUES UNTIL GIVEN ATIVAN OR FENTANYL. ATTEMPTS TO PULL AT BIPAP, IS SURELY UNCOMFORTABLE GIVEN HE HAS BEEN UNABLE TO COME OFF IT FOR MULTIPLE DAYS STRAIGHT. LUNG SOUNDS REMAIN CLEAR, HOWEVER. ASSESSMENT IS CHARTED. VSS. WILL CONTINUE TO MONITOR.
[2019-11-29 05:32] LABS: PCO2 Arterial 64.3 mmHg (35-45); PO2 Arterial 83.6 mmHg (80-100)
[2019-11-29 05:34] LABS: pH Blood Arterial 7.27 (7.35-7.45)
--- NOTE | 2019-11-29 08:03 | NUR ---
START OF SHIFT NOTE: RECEIVED REPORT FROM BALDEV SMITH RN, ASSUMED CARE, PATIENT CONTINUES ON BIPAP, SETTINGS 09/27 FiO2 85 %, PATIENT UNABLE TO ANSWER QUESTONS OR FOLLOW COMMANDS, AFEBRILE, APPEARS TO BE PAIN FREE, NPO, ST WITH HR 100'S, SBP'S 150'S, O2 SATURATION MID 90'S, PATIENT INCONTINENT AND WEARS ATTENDS, PATIENT SLIGHTLY RESTLESS, BUT LEAVES BIPAP ON, CALL LIGHT IN REACH, WILL CONTINUE TO MONITOR.
--- NOTE | 2019-11-29 10:34 | NUR ---
DR. STOCKTON IN TO SEE PATIENT, WILL SPEAK WITH FAMILY AFTER REVIEWING CHEST XRAY AND PATIENT DOCUMENTATION, NEW ORDER RECEIVED.
--- NOTE | 2019-11-29 10:41 | NUR ---
PATIENT RECEIVED 2 MG MORPHINE IV FOR AIR HUNGER, CALL LIGHT IN REACH, WILL CONTINUE TO MONITOR.
--- NOTE | 2019-11-29 10:47 | NUR ---
DR. RUBEN OLIVA SPEAKING WITH FAMILY AT THIS TIME ON FUTURE PLANS.
--- NOTE | 2019-11-29 10:51 | NUR ---
PATIENT TO BE ON COMFORT MEASURES, WILL STAY ON AIRVO/BIPAP UNTIL THIRD SON ARRIVES, DR. RUBEN OLIVA WILL WRITE NEW ORDERS, DR. ORTEGA IN WELL, AGREES WITH DR. MIRANDA.
--- NOTE | 2019-11-29 11:44 | NUR ---
PATIENT WAS BRIEFLY PLACED ON AIRVO AT 55L WITH 88 % FiO2, PATIENT DESATED ALMOST IMMEDIATELY AND WAS PLACED BACK ON BIPAP, SETTINGS 09/27/FiO2 100 %, PATIENT NOW ON COMFORT CARE, ALL IVF'S STOPPED, CALL LIGHT IN REACH, WILL CONTINUE TO MONITOR.
--- NOTE | 2019-11-29 12:00 | NUR ---
PATIENT CONTINUES TO REST COMFORTABLY AFTER RECEIVING 2 MG MORPHINE IV, ON BIPAP AT 12/9 FiO2 100 % AFTER A SHORT PERIOD ON AIRVO 55L AT 88 %, PATIENT DID NOT TOLERATE AIRVO AND DESATED ALMOST IMMEDIATELY TO 82 %, NO SATING IN MID 90'S, CALL LIGHT IN REACH, WILL CONTINUE TO MONITOR.
--- NOTE | 2019-11-29 12:38 | NUR ---
Pt resting in bed with his eyes closed and currently on BIPAP. No family at bedside at this time. Spoke with bedside MELLO Green and Dr Abdiel Villa. Discussed case. Pt placed on comfort care with plan for Pt to discontinue BIPAP once once more family member arrives this afternoon. Palliative Care will F/U for therapeutic support and symptom management.
--- NOTE | 2019-11-29 17:00 | NUR ---
Initial spiritual care note: Mr. Daily was alone in room and sleeping soundly. He did not respond to gentle voice /touch. Per chart, he is non-confucianism. Sat at bedside and held his hand for a while. He appears comfortable and well cared-for by nursing. I will remain available to pt and family.
--- NOTE | 2019-11-29 17:58 | NUR ---
SHIFT SUMMARY REPORT: NO ACUTE EVENTS DURING THIS SHIFT, PATIENT IS NOW COMFORT CARE STATUS, REMAINS ON BIPAP UNTIL HIS THIRD SON ARRIVES, PER DR. RUBEN OLIVA TAKE BIPAP OFF AFTER SON LEAVES, PATIENT RECEIVED MORPHINE TWICE FOR AIR HUNGER, RECEIVED BEDBATH AND WAS CHANGED FREQUENTLY D/T INCONTINENCE, REPOSITIONED BUT PATIENT MOVES SELF INTO SAME POSITION, FOR DETAILS SEE SHIFT ASSESSMENT DOCUMENTATION AND NURSES NOTES, CALL LIGHT IN REACH, WILL CONTINUE TO MONITOR.
--- NOTE | 2019-11-29 18:28 | NUR ---
CALLED DR. RUBEN OLIVA WITH UPDATE ON PATIENT CONDITION REQUESTED, NO NEW ORDERS RECEIVED.
--- NOTE | 2019-11-29 23:46 | NUR ---
NOVEMBER 29 @ 23:12 PATIENT . RHYTHM STRIP PLACED IN CHART, NOTIFIED CHARGE NURSE. 23:15 ATTEMPTED TO CALL BOTH SONS, PAGE & EDDIE, PHONES DIRECT TO VOICEMAIL. 23:[address] STARKEY. 23:30 CALLED FINAL DISCHARGE, PROVIDED INFORMATION, STATES POSSIBLE TISSURE DONOR. 23:35 REACH DAUGHTER IN LAW, ABLE TO NOTIFY PAGE, SON, OF PASSING. NOTIFY OF NEED TO KNOW HOME, IT CONSULTANT BELONGINGS, INCLUDING A WALKER AND WALLET WITH $393 IN IT. 23:45 FAXED PAPERWORK TO [employer].
== END 2019-11-29 23:12 | DRG 177 ==
LOC: ER 11:17 → MEDS 15:27 → ICUE 17:20 → MEDS 17:20 → PCU 11-22 21:04 → ICUE 11-23 02:24
PROVIDERS: Emergency Medicine; Family Medicine; Internal Medicine; Internal Medicine Critical Care Medicine; Pharmacist; ADMIT Student in an Organized Health Care Education/Training Program
PROC: 5A09357 Assistance with Respiratory Ventilation, Less than 24 Consecutive Hours, Continuous Positive Airway Pressure (ICD-10-PCS; principal; 2019-11-25)
DX: J69.0 Pneumonitis due to inhalation of food and vomit (principal); J96.01 Acute respiratory failure with hypoxia; J96.02 Acute respiratory failure with hypercapnia; E43 Unspecified severe protein-calorie malnutrition; E87.2 Acidosis; N17.9 Acute kidney failure, unspecified; Z51.5 Encounter for palliative care; G20 Parkinson's disease; Z66 Do not resuscitate; E78.5 Hyperlipidemia, unspecified; I12.9 Hypertensive chronic kidney disease with stage 1 through stage 4 chronic kidney disease, or unspecified chronic kidney disease; E03.9 Hypothyroidism, unspecified; E11.51 Type 2 diabetes mellitus with diabetic peripheral angiopathy without gangrene; I27.20 Pulmonary hypertension, unspecified; R79.89 Other specified abnormal findings of blood chemistry; N18.3 Chronic kidney disease, stage 3 (moderate); E11.22 Type 2 diabetes mellitus with diabetic chronic kidney disease; Z79.891 Long term (current) use of opiate analgesic; Z87.891 Personal history of nicotine dependence
CPT/HCPCS: 0099U; 36415; 36600; 71045; 71046; 71250; 71260; 80048; 80053; 80069; 80202; 81001; 82803; 82947; 83735; 83880; 84100; 84478; 84484; 85025; 85379; 87070; 87081; 87804; 92526; 92610; 93005; 93010; 93306; 94640; 94660; 94760; 96374; 97110; 97162; 97166; 97530; 97535; 99285-25; A9270; C9113; J0456; J0692; J1650; J1940; J2060; J2270; J2405; J2543; J2930; J3010; J3370; J7030; J7050; J7120; Q9967